=== PATIENT | male | born 1950 | race Caucasian/White ===

== ENCOUNTER 2020-05-25 13:32 | Outpatient (CLI) | payer MEDICARE, SELFPAY ==
--- NOTE | ~2020-05-25 | MR_ITS ---
EXAMINATION: MR knee LT wo con DATE: 05/25/2020 14:37 INDICATION: Left knee pain. TECHNIQUE: Magnetic resonance imaging (MRI) of the left knee was performed without intravenous contra st. Sequences included axial PD-weighted FS FSE, coronal PD-weighted FSE and PD-weighted FS FSE, sagi ttal PD-weighted FSE, and sagittal T2-weighted FS FSE. COMPARISON: None. FINDINGS: Medial compartment: There is a complex tear involving body and posterior horn of medial meniscus. There is deep partial t hickness cartilage loss involving tibial central and medial articular surface with mild subchondral e mary-like marrow signal intensity. There is full-thickness and deep partial thickness cartilage loss of femoral condyle involving the medial, central, and posterior articular surface. Marginal osteophyt es are noted. Lateral compartment: Lateral meniscus is normal. There is deep partial thickness cartilage loss of femoral condyle involvi ng the central articular surface. There is extensive shallow partial-thickness cartilage loss of tibi al condyle and femoral condyle. Marginal osteophytes are noted. Patellofemoral compartment: There is shallow partial-thickness cartilage loss of patella. There is deep partial thickness cartila ge loss of central trochlea and shallow partial-thickness cartilage loss of medial trochlea. Ligaments and tendons: Anterior and posterior cruciate ligaments are normal. There are changes of prior sprain of medial col lateral ligament characterized by thickening and increased signal intensity proximally. The lateral c ollateral ligament complex is normal. There is mild patellar tendinopathy. Fluid: There is a small knee joint effusion. There is a moderate-sized Bautista's cyst. IMPRESSION: 1. Severe chondrosis of medial compartment and moderate chondrosis of lateral and patellofemoral comp artments. 2. Tear of medial meniscus. 3. Small knee joint effusion. 4. Moderate-sized Bautista's cyst. Reviewed, dictated and finalized at location A. IMPRESSION: 1. Severe chondrosis of medial compartment and moderate chondrosis of lateral a nd patellofemoral compartments. 2. Tear of medial meniscus. 3. Small knee joint effusion. 4. Moderate-sized Bautista's cyst.
== END 2020-05-25 13:33 | disposition home or self-care (01) ==
LOC: ANHIMG 13:42
PROVIDERS: PCP Family Medicine; Visit Provider Nurse Practitioner
DX: M25.462 Effusion, left knee (principal); M71.22 Synovial cyst of popliteal space [Baker], left knee; S83.242A Other tear of medial meniscus, current injury, left knee, initial encounter; X58.XXXA Exposure to other specified factors, initial encounter
CPT/HCPCS: 73721

== ENCOUNTER 2020-07-02 09:14 | Outpatient (CLI) | payer MEDICARE, SELFPAY ==
--- NOTE | ~2020-07-02 | XR_ITS ---
XR knee LT min 4V 07/02/2020 09:47 Indication: Left knee pain Procedure: 5 views left knee Comparison: 06/14/2006 Findings: There is tricompartment osteoarthritis. The left knee, severe in the medial compartment. Tr serafin knee effusion. No fracture or traumatic malalignment. Irregular sclerosis of the distal femoral d iaphysis, likely enchondroma or bone infarction. There is chondrocalcinosis. Impression: 1: Severe osteoarthritis of the left knee, most advanced in the medial compartment. Reviewed, dictated and finalized at location A. CTIVE LIEUTENANT Impression: 1: Severe osteoarthritis of the left knee, most advanced in the medial compartm ent.
== END 2020-07-02 09:15 | disposition home or self-care (01) ==
LOC: CHSIMG 09:18
PROVIDERS: PCP Family Medicine; Visit Provider Orthopaedic Surgery
DX: M25.562 Pain in left knee (principal); M17.12 Unilateral primary osteoarthritis, left knee
CPT/HCPCS: 73564

== ENCOUNTER → 2021-01-06 01:59 | Outpatient (CLI) | payer MEDICARE, SELFPAY ==
[2021-01-06 17:04] LABS: SARS-CoV-2 RNA PCR Negative
== END ==
PROVIDERS: PCP Family Medicine; Visit Provider Internal Medicine Gastroenterology
DX: Z01.812 Encounter for preprocedural laboratory examination (principal); Z20.822 Contact with and (suspected) exposure to COVID-19
CPT/HCPCS: C9803; U0003; U0005

== ENCOUNTER 2021-01-09 00:44 | Day surgery (SDC) | payer MEDICARE, SELFPAY ==
[2020-12-30 13:58] VITALS: BMI 35.9
[2021-01-09 07:09] VITALS: BP 146/90; PULSE 83; RESP 18; TEMP 36.6; O2SAT 96; BMI 35.6
--- NOTE | 2021-01-09 07:20 | WPDGICN ---
GI Consult Note Consult date/time: 01/09/21 07:20 Reason for visit is colonoscopy. This very pleasant gentleman seen in consultation request of the primary physician. Impression: Screening colonoscopy. HTN. HLD. Obesity. CAD status post CABG X2 in x1. History: This very pleasant gentleman has a negative GI review systems. He is here for screening colonoscopy. Physical examination: General: very pleasant patient in no acute distress. HEENT: Head was normocephalic sclerae is clear mouth without masses neck was supple. Heart: Rate rhythm regular without S3 or S4. Lungs: CTA. Abdomen: Soft with no guarding or rigidity. Bowel sounds were active. Neurologic: Cranial nerves 2 through 12 intact. No focal defects. No clonus. Musculoskeletal system: Revealed no joint tenderness or swelling no muscle atrophy. Extremities: Reveal no significant edema. Skin: Warm and dry with normal turgor. Mental status: intact. Patient is alert and oriented. Review of Systems Review of Systems: All systems reviewed & are unremarkable except as noted in HPI and below PMFSH Past Medical History Medical History (Updated 10/22/20 @ 16:26 by Wendy Niño CMA) CAD (coronary artery disease) Eczema of lower leg Essential (primary) hypertension Gastritis Hypertension Prediabetes Surgical History Surgical History History of cholecystectomy 06/2010 Hx of coronary artery bypass graft 05/2009 and 1985 Family History Family History (Updated 07/02/20 @ 15:36 by Sheyla Rocha, RT(R)) Father Heart disease Father Family history of cardiovascular disease Other Cerebrovascular accident Hypertension Social History Social History (Updated 07/02/20 @ 15:37 by Sheyla Rocha, RT(R)) Smoking packs per day: 1 Smoking cigarettes per day: 20.0 Years smoked: 3 Smoking pack-years: 3.00 Smoking status: Former smoker Tobacco type: cigarettes Second hand tobacco smoke exposure: No Smoking end date: 08/09/74 Alcohol intake: current Drinks per week: 1 Substance use: never Substance use type: does not use Living arrangements: with family Gender identity (if verbalized by the patient): Male Spiritual care concerns: No Meds Home Medications and Allergies Home Medications Medication Instructions Recorded Confirmed Type aspirin 325 mg tablet 325 mg PO DAILY 06/29/19 12/30/20 History atorvastatin 20 mg tablet 20 mg PO DAILY 06/29/19 12/30/20 History hydrochlorothiazide 12.5 mg capsule 12.5 mg PO DAILY 06/29/19 12/30/20 History metoprolol succinate 50 mg 50 mg PO DAILY 06/29/19 12/30/20 History tablet,extended release 24 hr fosinopril 20 mg tablet 20 mg PO DAILY 07/12/19 12/30/20 History Allergies Allergy/AdvReac Type Severity Reaction Status Date / Time prednisolone Allergy Unknown Agitated Verified 01/09/21 07:09 Vital Signs Vital Signs - 24 hr 01/09/21 07:09 Temperature 36.6 C Pulse Rate 83 Respiratory Rate 18 Blood Pressure 146/90 H Pulse Oximetry 96
[2021-01-09] MEDS: LACTATED RINGERS 1,000 ML 150 ML IV CONT (07:30)
--- NOTE | 2021-01-09 08:16 | WPDANESEPPF ---
Anes - Initial Pre Proc Eval Procedure: Operation Date: 01/09/21 08:30 Proposed Procedures p Colonoscopy - Horacio Aguayo DO Date/Time: 01/09/21 08:16 Surgeon: Horacio Aguayo DO Pre Op Diagnosis: neoplasm screening Patient Data Age: 70 Gender: M Height: 5 ft 8 in Weight: 106.3 kg Last Vital Signs Temp 97.9 F 01/09/21 07:09 Pulse 83 01/09/21 07:09 Resp 18 01/09/21 07:09 BP 146/90 H 01/09/21 07:09 Pulse Ox 96 01/09/21 07:09 Allergies Allergy/AdvReac Type Severity Reaction Status Date / Time prednisolone Allergy Unknown Agitated Verified 01/09/21 07:09 Home Medications Medication Instructions Recorded Confirmed Type aspirin 325 mg tablet 325 mg PO DAILY 06/29/19 12/30/20 History atorvastatin 20 mg tablet 20 mg PO DAILY 06/29/19 12/30/20 History hydrochlorothiazide 12.5 mg capsule 12.5 mg PO DAILY 06/29/19 12/30/20 History metoprolol succinate 50 mg 50 mg PO DAILY 06/29/19 01/09/21 History tablet,extended release 24 hr fosinopril 20 mg tablet 20 mg PO DAILY 07/12/19 12/30/20 History Patient hx anesthesia problems: none Family hx anesthesia problems: none PMFSH Past Medical History Medical History (Updated 10/22/20 @ 16:26 by Wendy Niño CMA) CAD (coronary artery disease) Eczema of lower leg Essential (primary) hypertension Gastritis Hypertension Prediabetes Surgical History Surgical History History of cholecystectomy 06/2010 Hx of coronary artery bypass graft 05/2009 and 1985 Family History Family History (Updated 07/02/20 @ 15:36 by Sheyla Rocha RT(R)) Father Heart disease Father Family history of cardiovascular disease Other Cerebrovascular accident Hypertension Social History Social History (Updated 07/02/20 @ 15:37 by Sheyla Rocha RT(R)) Smoking packs per day: 1 Smoking cigarettes per day: 20.0 Years smoked: 3 Smoking pack-years: 3.00 Smoking status: Former smoker Tobacco type: cigarettes Second hand tobacco smoke exposure: No Smoking end date: 08/09/74 Alcohol intake: current Drinks per week: 1 Substance use: never Substance use type: does not use Living arrangements: with family Gender identity (if verbalized by the patient): Male Spiritual care concerns: No Anes - Eval Final PreProcedure Day of Procedure 01/09/21 08:16 Patient weight: obese Heart: regular rate and rhythm and murmur Lungs: clear to auscultation Airway: Mallampati scale Neurological: alert and oriented Last oral intake: >/= 8 hours ASA classification: III Emergent: no Anesthetic plan: proceed Anesthesia type and monitoring: general GIVS and standard monitoring Informed Consent: The patient's anesthetic plan and its attendant risks and benefits were discussed with the patient/family/POA. Questions were solicited and answers provided to the satisfaction of the patient/family/POA.
[2021-01-09 08:55] VITALS: BP 90/50; PULSE 66; RESP 19; O2SAT 96
[2021-01-09 09:05] VITALS: BP 98/50; PULSE 65; RESP 20; O2SAT 95
[2021-01-09 09:15] VITALS: BP 96/48; PULSE 63; RESP 18; O2SAT 96
== END 2021-01-09 09:21 | disposition home or self-care (01) ==
PROVIDERS: PCP Family Medicine; Visit Provider Internal Medicine Gastroenterology
PROC: 0DJD8ZZ Inspection of Lower Intestinal Tract, Via Natural or Artificial Opening Endoscopic (ICD-10-PCS; CPT 45378; principal; 2021-01-09 08:30)
DX: Z12.11 Encounter for screening for malignant neoplasm of colon (principal); K62.1 Rectal polyp; K63.5 Polyp of colon; I10 Essential (primary) hypertension; E78.5 Hyperlipidemia, unspecified; I25.10 Atherosclerotic heart disease of native coronary artery without angina pectoris; R73.03 Prediabetes; Z95.1 Presence of aortocoronary bypass graft; E66.9 Obesity, unspecified; Z68.35 Body mass index [BMI] 35.0-35.9, adult; Z87.891 Personal history of nicotine dependence; Z79.82 Long term (current) use of aspirin
CPT/HCPCS: 45380; 88305; C9803; J2704; J7120; U0003; U0005

== ENCOUNTER 2021-03-11 08:06 | Outpatient (CLI) | payer MEDICARE, SELFPAY ==
--- NOTE | ~2021-03-11 | XR_ITS ---
XR knee LT min 4V DATE: 03/11/2021 08:33 INDICATION: Chronic left knee pain TECHNIQUE: [place] and weightbearing AP, PA and lateral views COMPARISON: 06/28/2020 left knee FINDINGS: No fracture or dislocation or joint effusion, periosteal reaction or bone destruction. There is tricompartment osteoarthritis, most prominent at the medial compartment. Mild chondrocalcino sis. Sclerotic opacities in the distal femoral shaft are consistent with old infarct or less likely enchon droma. Surgical clips are noted within the soft tissues of the distal upper leg and proximal lower leg. IMPRESSION: Tricompartment osteoarthritis Reviewed, dictated and finalized at location B.
== END 2021-03-11 08:07 | disposition home or self-care (01) ==
PROVIDERS: PCP Family Medicine; Visit Provider Orthopaedic Surgery
DX: M25.562 Pain in left knee (principal)
CPT/HCPCS: 73564

== ENCOUNTER 2021-03-18 07:58 | Outpatient (CLI) | payer MEDICARE, SELFPAY ==
[2021-03-18 08:35] LABS: Basophils Absolute Auto 0.1 K/mm3 (0.0-0.1); Basophils Percent Auto 0.8 % (0.2-1.2); Eosinophils Absolute Auto 0.3 K/mm3 (0-0.3); Eosinophils Percent Auto 4.5 % (0-4.4); Hematocrit 45.1 % (42.0-52.0); Immature Granulocyte Absolute 0.02 K/mm3 (0.00-0.031); Immature Granulocyte Percent A 0.3 % (0-0.5); Lymphocytes Absolute Auto 1.39 K/mm3 (0.9-3.2); Lymphocytes Percent Auto 23.2 % (18.3-44.2); Mean Corpuscular HGB Conc 33.3 g/dl (32-36); Mean Corpuscular Hemoglobin 30.4 pg (26-34); Mean Corpuscular Volume 91.5 fl (80-100); Mean Platelet Volume 10.8 fl (7.4-10.4); Monocytes Absolute Auto 0.8 K/mm3 (0.1-0.6); Neutrophils Absolute Auto 3.4 K/mm3 (1.3-6.7); Neutrophils Percent Auto 57.2 % (45.5-73.1); Platelet Count Result 171 k/mm3 (150-375); Red Blood Count 4.93 M/mm3 (4.6-6.20)
--- NOTE | 2021-03-18 08:46 | ECG_ITS ---
Measurements Intervals [place] Rate: 68 P: 43 [place]: 161 QRS: 30 QRSD: 106 T: 86 QT: 414 QTc: 440 Interpretive Statements SINUS RHYTHM INCOMPLETE RIGHT BUNDLE BRANCH BLOCK CONSIDER INFERIOR INFARCT, AGE INDETERMINATE BORDERLINE T WAVE ABNORMALITY- ANTERIOR LEADS BASELINE ARTIFACT- V3 ABNORMAL ECG Electronically Signed On 03-18-2021 10:14:45 CDT by Jass Coon D.O.
[2021-03-18 08:57] LABS: Alanine Aminotransferase 45 U/L (4-50); Albumin Level 4.2 g/dL (3.5-5.1); Alkaline Phosphatase 92 U/L (38-126); Anion Gap 5 mmol/L (8-16); Aspartate Amino Transferase 44 U/L (17-59); Bilirubin,Total 0.9 mg/dL (0.2-1.3); Blood Urea Nitrogen 9 mg/dL (9-20); Calcium 9.4 mg/dL (8.4-10.2); Carbon Dioxide 31 mmol/L (22-30); Chloride 103 mmol/L (98-107); Estimated Glomerular Filt Rate > 60; Glucose 116 mg/dL (65-110); Potassium 4.3 mmol/L (3.4-5.0); Sodium 139 mmol/L (137-145)
[2021-03-18 09:34] LABS: Hemoglobin A1C 5.9 % (<5.7)
== END 2021-03-18 07:59 | disposition home or self-care (01) ==
LOC: ANHLAB 08:02
PROVIDERS: PCP Family Medicine; Visit Provider Family Medicine
DX: R73.03 Prediabetes (principal); E78.5 Hyperlipidemia, unspecified; I10 Essential (primary) hypertension; Z01.818 Encounter for other preprocedural examination; I45.10 Unspecified right bundle-branch block
CPT/HCPCS: 36415; 80053; 83036; 85025; 93005

== ENCOUNTER 2021-03-28 04:32 | Day surgery (SDC) | payer MEDICARE, SELFPAY ==
[2021-03-17 16:11] VITALS: BMI 36.5
[2021-03-28] VITALS (7 sets, daily range): BP systolic 127–145; BP diastolic 67–95; PULSE 68–85; RESP 11–16; TEMP 36.4–36.7; O2SAT 93–100
--- NOTE | 2021-03-28 07:29 | WPDHPUPDATE1 ---
History and Physical Update Update Date/Time: 03/28/21 07:29 History and Physical has been reviewed, including an updated exam of the patient. There are NO changes in the patient's condition. Risks, benefits, and alternatives have been discussed and questions answered. Patient agrees to proceed with procedure.
[2021-03-28] MEDS: LACTATED RINGERS 1,000 ML 30 ML IV CONT ×2 (07:50→09:57)
[2021-03-28] MEDS: CELECOXIB 200 MG CAPSULE PO (07:54)
[2021-03-28] MEDS: ACETAMINOPHEN 500 MG TABLET 1000 MG PO (07:54)
--- NOTE | 2021-03-28 08:16 | WPDANESEPPF ---
Anes - Initial Pre Proc Eval Procedure: Operation Date: 03/28/21 09:00 Proposed Procedures p Left Knee Arthroscopy, Proceed As Indicated - Chuy Sanchez MD Date/Time: 03/28/21 08:16 Surgeon: Chuy Sanchez MD Pre Op Diagnosis: Left knee medial meniscus tear Patient Data Age: 70 Gender: M Height: 1.73 m Weight: 109 kg Allergies Allergy/AdvReac Type Severity Reaction Status Date / Time prednisolone AdvReac Unknown Agitated Verified 03/17/21 16:01 Home Medications Medication Instructions Recorded Confirmed Type aspirin 325 mg tablet 325 mg PO DAILY 06/29/19 03/17/21 History hydrochlorothiazide 12.5 mg capsule 12.5 mg PO QAM 06/29/19 03/17/21 History metoprolol succinate 50 mg 50 mg PO QAM 06/29/19 03/17/21 History tablet,extended release 24 hr fosinopril 20 mg tablet 20 mg PO QAM 07/12/19 03/17/21 History atorvastatin 20 mg tablet 20 mg PO QHS tablet 03/17/21 03/17/21 History Patient hx anesthesia problems: none Family hx anesthesia problems: none PMFSH Past Medical History Medical History (Updated 03/28/21 @ 08:16 by Germán Shepard MD) CAD (coronary artery disease) Eczema of lower leg Essential (primary) hypertension Gastritis Obesity Prediabetes Surgical History Surgical History History of cholecystectomy 06/2010 Hx of coronary artery bypass graft 05/2009 and 1985 Family History Family History Father Heart disease Father Family history of cardiovascular disease Other Cerebrovascular accident Hypertension Social History Social History Smoking packs per day: 1 Smoking cigarettes per day: 20.0 Years smoked: 5 Smoking pack-years: 5.00 Smoking status: Former smoker Tobacco type: cigarettes Second hand tobacco smoke exposure: No Smoking end date: 02/06/79 Alcohol intake: current Drinks per week: 3 Alcohol use details: 2 beers consumed weekly Substance use: never Substance use type: does not use Living arrangements: with family Additional living arrangements comments: Gender identity (if verbalized by the patient): Male Spiritual care concerns: No Anes - Eval Final PreProcedure Day of Procedure 03/28/21 08:16 Patient weight: obese Heart: regular rate and rhythm Lungs: clear to auscultation Airway: Mallampati scale class III Neurological: alert and oriented Last oral intake: >/= 8 hours ASA classification: III Emergent: no Anesthetic plan: proceed Anesthesia type and monitoring: general LMA and standard monitoring Informed Consent: The patient's anesthetic plan and its attendant risks and benefits were discussed with the patient/family/POA. Questions were solicited and answers provided to the satisfaction of the patient/family/POA.
[2021-03-28] MEDS: ceFAZolin 2 GM/D5W 50 ML 2 GM/50 ML BAG IVPB (08:43)
[2021-03-28] MEDS: BUPIVACAINE HCL 0.5% PF 30 ML VIAL INFILTRATE (09:17)
--- NOTE | 2021-03-28 10:17 | W.PM.PROC2 ---
Procedure Note - Detailed Date of Procedure 03/28/21 Pre-op Diagnosis Left knee medial meniscus tear, lateral meniscus tear Post-op Diagnosis same Procedure Performed LEFT KNEE SCOPE Surgeon Chuy Sanchez MD Anesthesia general Description of Procedure PATIENT WAS TAKEN TO THE OR. LEFT LEG WAS PREPPED AND DRAPED STERILE. TROCARS WERE PLACED IN THE USUAL FASHION. CAMERA WAS INTRODUCED. THERE WAS CHONDROMALACIA TO THE PATELLA FEMORAL JOINT. THERE WAS A LOT OF SYNOVITIS IN ALL COMPARTMENTS. THE MEDIAL COMPARTMENT SHOWED CHONDROMALACIA TO THE MEDIAL FEMORAL CONDYLE. A SHAVER WAS USED TO PREFORM A CHONDROPLASTY. THERE WAS A COMPLEX MEDIAL MENISCUS TEAR. THERE WAS A PREVIOUS RESECTED TEAR THAT WAS NOTED. THERE WAS A FULL THICKNESS CARTILAGE DEFECT AT THE POSTERIOR PLATEAU. THE TEAR WAS RESECTED WITH A BITER AND A SHAVER DOWN TO A SMOOTH BASE. ABOUT 20% OF THE MENISCUS WAS REMOVED. THE ACL WAS INTACT. THE LATERAL MENISCUS WAS TORN AT THE MIDDLE OF THE MAIN BODY. THERE WAS A CHONDRAL DEFECT THAT HAD GRADE 2 CHONDROMALACIA. THIS UNDERWENT CHONDROPLASTY. A SYNOVECTOMY WAS PREFORMED WELL. THE PATELLO FEMORAL JOINT UNDERWENT CHONDROPLASTY. THERE WAS GRADE 3 CHONDROMALACIA IN PART OF THE TROCHLEA AND PART OF THE PATELLA. SYNOVECTOMY WAS PREFORMED IN THE SUPERIOR MEDIAL COMPARTMENT. THE WOUNDS WERE APPROXIMATED WITH 4.0 NYLON. STERILE DRESSING WAS APPLIED. PATIENT WAS EXTUBATED. Estimated Blood Loss -5.0 Complications No immediate complications Condition stable Disposition PACU
== END 2021-03-28 11:48 | disposition home or self-care (01) ==
PROVIDERS: PCP Family Medicine; Visit Provider Orthopaedic Surgery
PROC: (CPT 29870; principal; 2021-03-28 09:00)
DX: M23.329 Other meniscus derangements, posterior horn of medial meniscus, unspecified knee (principal); M23.262 Derangement of other lateral meniscus due to old tear or injury, left knee; M65.862 Other synovitis and tenosynovitis, left lower leg; M22.42 Chondromalacia patellae, left knee; M23.8X2 Other internal derangements of left knee; I10 Essential (primary) hypertension; I25.10 Atherosclerotic heart disease of native coronary artery without angina pectoris; Z95.1 Presence of aortocoronary bypass graft; E66.9 Obesity, unspecified; Z68.35 Body mass index [BMI] 35.0-35.9, adult; Z87.891 Personal history of nicotine dependence; Z79.82 Long term (current) use of aspirin; Z79.899 Other long term (current) drug therapy
CPT/HCPCS: 29880; 36415; 80053; 83036; 85025; 93005; 97116; A9270; J0690; J1100; J2250; J2405; J2704; J3010; J7120

== ENCOUNTER 2021-04-11 07:56 | Outpatient (RCR) | payer MEDICARE, SELFPAY ==
--- NOTE | 2021-04-11 08:02 | PTOPEVAL ---
Thank you for referring Lauro Stratton to [facility] [place].? The patient is scheduled to be seen for therapy? ____x/week for ___ weeks. Please review, sign, date and return this plan of care CATHERINE. I agree with and certify that the following plan of care is medically necessary. Referring Physician Date Admitting Provider: Attending Provider: Chuy Sanchez MD Referring Provider: *PT Outpatient Evaluation Start: 04/11/21 07:00 Freq: Status: Active Protocol: Document 04/11/21 07:01 ACR (Rec: 04/11/21 08:02 ACR [id number]) Therapy Assessment Status Assessment Status Assessment Status Evaluation Outpatient Past Medical History Neurological History Hx Neurological Disorders No Significant History Cardiovascular History Hx Cardiac Catheterization Yes Hx Congestive Heart Failure Yes Hx Coronary Artery Bypass Graft Yes: 1986 two vessel, 2008 one vessel Hx Coronary Artery Disease Yes Hx Hypercholesterolemia Yes Hx Hypertension Yes Hx Myocardial Infarction Yes: 1986 AND 2008 Hx Other Cardiac Disorders Yes: DR RUBIO ANNUALLY Respiratory History Hx Respiratory Disorders No Significant History Gastrointestinal History Hx Cholecystectomy Yes: 2009 Genitourinary History Hx Urinary Tract Infection Yes Musculoskeletal History Hx Other Musculoskeletal Disorders Yes: LT KNEE MEDIAL MENISCUS TEAR Hematological History Hx Hematological Disorders No Significant History Endocrine History Hx Endocrine Disorders No Significant History HEENT History Hx HEENT Disorders No Significant History Integumentary History Hx Psoriasis Yes Hx Shingles Yes: YEARS AGO Reproductive History Hx Reproductive Disorders No Significant History Psychosocial History Hx Psychiatric Disorders No Significant History Pain History History of Any Previous or Ongoing No Significant History Instance of Pain Anesthesia History Hx Anesthesia Reactions No Significant History Evaluation Information Problem Diagnosis L knee arthroscopy Onset 03/28/21 Subjective Information Patient states that last year Query Text:As Reported By Patient/ his knee really started Family bothering him. He waited for a bit then got a scope on his knee. He went back to the doctor yesterday and got it drained and then a cortizone shot which made it feel a lot better. He states he has difficulty with steps,
--- NOTE | 2021-05-20 10:45 | PTOPEVAL ---
Thank you for referring Lauro Stratton to [facility].? The patient is scheduled to be seen for therapy? ____x/week for ___ weeks. Please review, sign, date and return this plan of care CATHERINE. I agree with and certify that the following plan of care is medically necessary. Referring Physician Date Admitting Provider: Attending Provider: Chuy Sanchez MD Referring Provider: *PT Outpatient Evaluation Start: 04/11/21 07:00 Freq: Status: Active Protocol: Document 05/20/21 07:12 ACR (Rec: 05/20/21 07:58 ACR [id number]) Therapy Assessment Status Assessment Status Assessment Status Progress Outpatient Past Medical History Neurological History Hx Neurological Disorders No Significant History Cardiovascular History Hx Cardiac Catheterization Yes Hx Congestive Heart Failure Yes Hx Coronary Artery Bypass Graft Yes: 1986 two vessel, 2008 one vessel Hx Coronary Artery Disease Yes Hx Hypercholesterolemia Yes Hx Hypertension Yes Hx Myocardial Infarction Yes: 1986 AND 2008 Hx Other Cardiac Disorders Yes: DR RUIBO ANNUALLY Respiratory History Hx Respiratory Disorders No Significant History Gastrointestinal History Hx Cholecystectomy Yes: 2009 Genitourinary History Hx Urinary Tract Infection Yes Musculoskeletal History Hx Other Musculoskeletal Disorders Yes: LT KNEE MEDIAL MENISCUS TEAR Hematological History Hx Hematological Disorders No Significant History Endocrine History Hx Endocrine Disorders No Significant History HEENT History Hx HEENT Disorders No Significant History Integumentary History Hx Psoriasis Yes Hx Shingles Yes: YEARS AGO Reproductive History Hx Reproductive Disorders No Significant History Psychosocial History Hx Psychiatric Disorders No Significant History Pain History History of Any Previous or Ongoing No Significant History Instance of Pain Anesthesia History Hx Anesthesia Reactions No Significant History Evaluation Information Problem Diagnosis L knee arthroscopy Onset 03/28/21 Subjective Information Patient reports that he Query Text:As Reported By Patient/ continues to have pain Family especially in the morning. He has difficulty with stairs and can't go up or down the correct way, rather he has to go sideways. He states that he still feels pretty weak. He feels like the back of his knee is really tight and he is
--- NOTE | 2021-06-16 07:56 | PTOPEVAL ---
Thank you for referring Lauro Stratton to [facility].? The patient is scheduled to be seen for therapy? ____x/week for ___ weeks. Please review, sign, date and return this plan of care CATHERINE. I agree with and certify that the following plan of care is medically necessary. Referring Physician Date Admitting Provider: Attending Provider: Chuy Sanchez MD Referring Provider: *PT Outpatient Evaluation Start: 04/11/21 07:00 Freq: Status: Active Protocol: Document 06/16/21 06:55 ACR (Rec: 06/16/21 07:55 ACR [id number]) Therapy Assessment Status Assessment Status Assessment Status Discharge Outpatient Past Medical History Neurological History Hx Neurological Disorders No Significant History Cardiovascular History Hx Cardiac Catheterization Yes Hx Congestive Heart Failure Yes Hx Coronary Artery Bypass Graft Yes: 1986 two vessel, 2008 one vessel Hx Coronary Artery Disease Yes Hx Hypercholesterolemia Yes Hx Hypertension Yes Hx Myocardial Infarction Yes: 1986 AND 2008 Hx Other Cardiac Disorders Yes: DR RUBIO ANNUALLY Respiratory History Hx Respiratory Disorders No Significant History Gastrointestinal History Hx Cholecystectomy Yes: 2009 Genitourinary History Hx Urinary Tract Infection Yes Musculoskeletal History Hx Other Musculoskeletal Disorders Yes: LT KNEE MEDIAL MENISCUS TEAR Hematological History Hx Hematological Disorders No Significant History Endocrine History Hx Endocrine Disorders No Significant History HEENT History Hx HEENT Disorders No Significant History Integumentary History Hx Psoriasis Yes Hx Shingles Yes: YEARS AGO Reproductive History Hx Reproductive Disorders No Significant History Psychosocial History Hx Psychiatric Disorders No Significant History Pain History History of Any Previous or Ongoing No Significant History Instance of Pain Anesthesia History Hx Anesthesia Reactions No Significant History Evaluation Information Problem Diagnosis L knee arthoscopy Onset 03/28/21 Subjective Information Patient reports that since Query Text:As Reported By Patient/ beginning therapy he is Family feeling good, but he continues to have pain throughout the day. His pain is worse in the morning. He also states that uneven terrain and steps are still a little difficult for him. He states that walking is a lot better, but when he
== END 2021-06-16 09:24 | disposition home or self-care (01) ==
LOC: CHSPT 07:56
PROVIDERS: Visit Provider Orthopaedic Surgery
DX: Z98.890 Other specified postprocedural states (principal)
CPT/HCPCS: 97014; 97110; 97140; 97161; 97530; G0283

== ENCOUNTER 2022-06-29 11:25 | Outpatient (CLI) | payer MEDICARE, SELFPAY ==
[2022-06-29 18:49] LABS: Basophils Absolute Auto 0.1 K/mm3 (0.0-0.1); Basophils Percent Auto 0.9 % (0.2-1.2); Eosinophils Absolute Auto 0.3 K/mm3 (0-0.3); Eosinophils Percent Auto 4.5 % (0-4.4); Hematocrit 44.3 % (42.0-52.0); Hemoglobin 15.1 g/dL (14.0-18.0); Immature Granulocyte Absolute 0.04 K/mm3 (0.00-0.031); Immature Granulocyte Percent A 0.6 % (0-0.5); Lymphocytes Absolute Auto 1.37 K/mm3 (0.9-3.2); Lymphocytes Percent Auto 19.7 % (18.3-44.2); Mean Corpuscular HGB Conc 34.1 g/dl (32-36); Mean Corpuscular Hemoglobin 30.3 pg (26-34); Mean Corpuscular Volume 88.8 fl (80-100); Mean Platelet Volume 11.8 fl (7.4-10.4); Monocytes Absolute Auto 0.9 K/mm3 (0.1-0.6); Neutrophils Absolute Auto 4.3 K/mm3 (1.3-6.7); Neutrophils Percent Auto 61.3 % (45.5-73.1); Platelet Count Result 218 k/mm3 (150-375); Red Blood Count 4.99 M/mm3 (4.6-6.20); Red Cell Distribution Width 12.6 % (11.5-14.5); White Blood Count 6.9 K/mm3 (4.5-10.0)
[2022-06-29 18:53] LABS: Hemoglobin A1C 6.2 % (<5.7)
[2022-06-29 18:58] LABS: Alanine Aminotransferase 39 U/L (6-50); Albumin Level 4.3 g/dL (3.5-5.1); Alkaline Phosphatase 75 U/L (38-126); Anion Gap 8 mmol/L (8-16); Aspartate Amino Transferase 50 U/L (17-59); Bilirubin,Total 0.8 mg/dL (0.2-1.3); Blood Urea Nitrogen 14 mg/dL (9-20); Calcium 9.3 mg/dL (8.4-10.2); Carbon Dioxide 31 mmol/L (22-30); Chloride 100 mmol/L (98-107); Cholesterol 157 mg/dL (0-200); Estimated Glomerular Filt Rate > 60; Glucose 117 mg/dL (65-110); HDL Direct 27 mg/dL; Potassium 4.9 mmol/L (3.4-5.0); Sodium 139 mmol/L (137-145); Triglycerides 167 mg/dL (<150)
[2022-06-29 19:09] LABS: LDL Cholesterol Direct 95 mg/dL
[2022-06-29 19:19] LABS: Vitamin D 25 Hydroxy 58.4 ng/mL
[2022-06-29 19:30] LABS: Prostate Specific Antigen 0.9 ng/mL (< OR = 4.0)
== END 2022-06-29 11:26 | disposition home or self-care (01) ==
LOC: ANHGOSHLAB 11:30
PROVIDERS: PCP Family Medicine; Visit Provider Family Medicine
DX: I10 Essential (primary) hypertension (principal); Z79.899 Other long term (current) drug therapy; R73.03 Prediabetes; Z12.5 Encounter for screening for malignant neoplasm of prostate; E78.5 Hyperlipidemia, unspecified; E55.9 Vitamin D deficiency, unspecified; E53.8 Deficiency of other specified B group vitamins
CPT/HCPCS: 36415; 80053; 80061; 82306; 82607; 83036; 84153; 84443; 85025; G0103

== ENCOUNTER 2022-12-20 06:14 | Emergency (ER) | payer MEDICARE, SELFPAY ==
[2022-12-20] VITALS (8 sets, daily range): BP systolic 120–134; BP diastolic 68–83; PULSE 63–77; RESP 14–20; TEMP 36.7; O2SAT 94–98
--- NOTE | ~2022-12-20 | CT_ITS ---
EXAMINATION: CT abdomen pelvis w con DATE: 12/20/2022 07:55 INDICATION: Left lower quadrant pain TECHNIQUE: Computed tomography (CT) of the abdomen and pelvis was performed with 100 cc Omnipaque 350 intravenous contrast. The dose-length product was 1306.88 mGy-cm. Automated exposure control and ite rative reconstruction technique were employed. COMPARISON: None. FINDINGS: There is dependent atelectasis in the lung bases. Heart size normal. No significant pleural or pericardial effusion. Mild atherosclerosis without aneurysm. No lymphadenopathy. Retroaortic left renal vein. There is an accessory splenule. No free air or free fluid. Status post cholecystectomy. The liver, spleen, pancreas, adrenal glands and kidneys are unremarkable . There is lumbar spondylosis with partial fusion at L4-5. There are small lytic defects in multiple vertebral bodies, suspicious for metastatic disease or myeloma. Mild osteoarthritis of the hips. IMPRESSION: 1. No acute abdominal abnormality. 2: Small subtle lytic lesions of multiple vertebral bodies, suspicious for metastatic disease or mye matthew. Correlate for history of malignancy. Reviewed, dictated and finalized at location A. IMPRESSION: 1. No acute abdominal abnormality. 2: Small subtle lytic lesions of multiple vertebral bodies, suspicious for met astatic disease or myeloma. Correlate for history of malignancy.
--- NOTE | 2022-12-20 06:32 | ECG_ITS ---
Measurements Intervals [place] Rate: 73 P: 29 [place]: 185 QRS: 9 QRSD: 101 T: 52 QT: 413 QTc: 457 Interpretive Statements SINUS RHYTHM VENTRICULAR PREMATURE COMPLEXES INCOMPLETE RIGHT BUNDLE BRANCH BLOCK DELAYED PRECORDIAL R/S TRANSITION CONSIDER INFERIOR INFARCT, AGE INDETERMINATE BORDERLINE ST-T WAVE ABNORMALITY- HIGH LATERAL LEADS ABNORMAL ECG COMPARED TO ECG 03/18/2021 08:58:24 NO SIGNIFICANT CHANGES Electronically Signed On 12-20-2022 8:06:17 CDT by Jass Coon D.O.
[2022-12-20 07:06] LABS: Basophils Percent Auto 0.7 % (0.2-1.2); Eosinophils Absolute Auto 0.4 K/mm3 (0-0.3); Eosinophils Percent Auto 6.7 % (0-4.4); Hematocrit 42.4 % (42.0-52.0); Hemoglobin 14.3 g/dL (14.0-18.0); Immature Granulocyte Absolute 0.02 K/mm3 (0.00-0.031); Immature Granulocyte Percent A 0.4 % (0-0.5); Lymphocytes Absolute Auto 1.28 K/mm3 (0.9-3.2); Lymphocytes Percent Auto 22.7 % (18.3-44.2); Mean Corpuscular HGB Conc 33.7 g/dl (32-36); Mean Corpuscular Hemoglobin 30.2 pg (26-34); Mean Corpuscular Volume 89.5 fl (80-100); Mean Platelet Volume 11.1 fl (7.4-10.4); Monocytes Absolute Auto 0.9 K/mm3 (0.1-0.6); Monocytes Percent Auto 15.1 % (2.6-8.5); Neutrophils Absolute Auto 3.1 K/mm3 (1.3-6.7); Neutrophils Percent Auto 54.4 % (45.5-73.1); Platelet Count Result 172 k/mm3 (150-375); Red Blood Count 4.74 M/mm3 (4.6-6.20); Red Cell Distribution Width 12.9 % (11.5-14.5); White Blood Count 5.6 K/mm3 (4.5-10.0)
[2022-12-20 07:15] LABS: Alanine Aminotransferase 34 U/L (6-50); Alkaline Phosphatase 152 U/L (38-126); Anion Gap 7 mmol/L (8-16); Aspartate Amino Transferase 32 U/L (17-59); Bilirubin,Total 0.6 mg/dL (0.2-1.3); Blood Urea Nitrogen 16 mg/dL (9-20); Calcium 8.5 mg/dL (8.4-10.2); Carbon Dioxide 32 mmol/L (22-30); Chloride 100 mmol/L (98-107); Estimated CRCL calculation 96 ml/min; Estimated Glomerular Filt Rate > 60; Glucose 126 mg/dL (65-110); Lipase 146 U/L (23-300); Sodium 139 mmol/L (137-145)
--- NOTE | 2022-12-20 07:21 | ED.GENADULT ---
HPI - General Adult General Chief complaint: Weakness Stated complaint: generalized wekaness Time Seen by Provider: 12/20/22 07:00 History of Present Illness HPI narrative: 72-year-old male presented the emergency department for evaluation of left lower quadrant abdominal pain and generalized fatigue. Patient states the lower abdominal pain started approximate 2 days ago he describes it as a pinching pain and that the pain has been slowly worsening. Patient denies any associated nausea vomiting diarrhea chest pain or shortness of breath with this. Patient denies any prior history of kidney stones or diverticulitis. Patient did have colonoscopy approximately 2 years ago. Patient denies any chest pain or diaphoresis with this pain. Patient does have a prior history of CABG. Patient is unsure when he had a last stress test Related Data Home Medications Medication Instructions Recorded Confirmed hydrochlorothiazide 12.5 mg capsule 12.5 mg PO QAM 06/29/19 06/29/22 metoprolol succinate 50 mg 50 mg PO QAM 06/29/19 06/29/22 tablet,extended release 24 hr fosinopril 20 mg tablet 20 mg PO QAM 07/12/19 06/29/22 atorvastatin 20 mg tablet 20 mg PO QHS 03/17/21 06/29/22 aspirin 81 mg capsule 81 mg PO DAILY 12/22/21 06/29/22 cholecalciferol (vitamin D3) 50 50 mcg PO DAILY 06/29/22 06/29/22 mcg (2,000 unit) tablet Allergies Allergy/AdvReac Type Severity Reaction Status Date / Time prednisolone AdvReac Unknown Agitated Verified 06/29/22 10:27 Review of Systems Review of Systems: All systems reviewed & are unremarkable except as noted in HPI and below [facility] Past Medical History Medical History CAD (coronary artery disease) Eczema of lower leg Essential (primary) hypertension Gastritis Left knee DJD Obesity Prediabetes Ventral hernia without obstruction or gangrene Vitamin D deficiency Surgical History Surgical History History of cholecystectomy 06/2010 History of laparoscopy (~2020) 03/2021 - Left knee medial and lateral meniscus repair Hx of coronary artery bypass graft 05/2009 and 1985 Family History Family History Father Heart disease Father Family history of cardiovascular disease Other Cerebrovascular accident Hypertension Social History Social History Smoking packs per day: 1 Smoking cigarettes per day: 20.0 Years smoked: 5 Smoking pack-years: 5.00 Smoking status: Former smoker Tobacco type: cigarettes Second hand tobacco smoke exposure: No Smoking end date: 02/06/79 Alcohol intake: current Drinks per week: 3 Alcohol use details: 2 beers consumed weekly Substance use: never Substance use type: does not use Living arrangements: with family Additional living arrangements comments: Gender identity (if verbalized by the patient): Male Spiritual care concerns: No Exam Narrative: APPEARANCE: Well appearing, no pain, no distress, well-nourished. HEAD: normocephalic, atraumatic. EYES: PERRLA/EOMI, conjunctivae clear. NOSE: Normal no drainage NECK: Supple. No adenopathy, no masses. RESPIRATORY: Airway patent, respirations nonlabored. Clear to auscultation bilaterally, no rales, rhonchi, wheezing. CARDIOVASCULAR: Regular rate and rhythm without murmurs rubs or gallops. ABDOMINAL: Soft, left lower quadrant tenderness to palpation MUSCULOSKELETAL: Moves all extremities. Strength/ROM intact, No edema, No calf tenderness. NEURO: Alert. Cranial nerves II through XII intact. SKIN: Warm, dry. Normal Color Course Course Emergency Course: 72-year-old male presenting to the ED for evaluation of left lower quadrant pain. Patient is afebrile with no leukocytosis. Patient's vital signs are stable. Patient's CMP is within normal limits.
[2022-12-20 07:27] LABS: Troponin I < 0.012 ng/mL (0.000-0.034)
[2022-12-20 07:29] LABS: INR 1.1; Prothrombin Time 14.4 Seconds (11.1-14.7)
[2022-12-20 07:30] LABS: Partial Thromboplastin Time 31.4 SECONDS (22.3-36.8)
[2022-12-20 08:15] LABS: Influenza A QL RT-PCR Negative (Negative); Influenza B QL RT-PCR Negative (Negative); RSV RNA, RT-PCR Negative (Negative); SARS-CoV-2 RNA PCR Negative (Negative)
--- NOTE | 2022-12-20 09:49 | PC.NURSE ---
pt unable to provide urine sample at this time and is declining straight cath.
[2022-12-20 10:24] LABS: Troponin I < 0.012 ng/mL (0.000-0.034)
[2022-12-20 11:11] LABS: Appearance Urine Clear (Clear); Bilirubin Urine Negative (Negative); Blood Urine Negative (Negative); Color Urine Yellow (Yellow); Glucose Urine UA Negative (Negative); Ketones Urine Negative (Negative); Leukocyte Esterase Ur Negative LEU/UL (Negative); Nitrate Urine Negative (Negative); Protein Urine Negative (Negative); pH Urine 6.5 (5.0-9.0)
[2022-12-20 11:14] LABS: Add Urine Microscopic? NO; Specific Grav Ur 1.039 (1.001-1.035)
== END 2022-12-20 11:07 | disposition home or self-care (01) ==
PROVIDERS: Emergency Medicine; Emergency Provider Emergency Medicine; PCP Family Medicine
DX: R10.32 Left lower quadrant pain (principal); Z20.822 Contact with and (suspected) exposure to COVID-19; I25.10 Atherosclerotic heart disease of native coronary artery without angina pectoris; I10 Essential (primary) hypertension; R73.03 Prediabetes; E55.9 Vitamin D deficiency, unspecified; M17.12 Unilateral primary osteoarthritis, left knee; E66.9 Obesity, unspecified; Z68.35 Body mass index [BMI] 35.0-35.9, adult; Z95.1 Presence of aortocoronary bypass graft; Z87.891 Personal history of nicotine dependence; Z90.49 Acquired absence of other specified parts of digestive tract; Z79.82 Long term (current) use of aspirin; I49.3 Ventricular premature depolarization; I45.10 Unspecified right bundle-branch block; R94.31 Abnormal electrocardiogram [ECG] [EKG]; R93.7 Abnormal findings on diagnostic imaging of other parts of musculoskeletal system
CPT/HCPCS: 36415; 74177; 80053; 81003; 83690; 84484; 85025; 85610; 85730; 87637; 93005; 99284; Q9967

== ENCOUNTER 2022-12-28 09:16 | Outpatient (CLI) | payer MEDICARE, SELFPAY ==
[2022-12-28 19:04] LABS: Alanine Aminotransferase 33 U/L (6-50); Alkaline Phosphatase 97 U/L (38-126); Anion Gap 4 mmol/L (8-16); Aspartate Amino Transferase 40 U/L (17-59); Bilirubin,Total 0.8 mg/dL (0.2-1.3); Blood Urea Nitrogen 13 mg/dL (9-20); Calcium 8.7 mg/dL (8.4-10.2); Carbon Dioxide 34 mmol/L (22-30); Chloride 100 mmol/L (98-107); Estimated Glomerular Filt Rate > 60; Glucose 114 mg/dL (65-110); Potassium 4.1 mmol/L (3.4-5.0); Sodium 138 mmol/L (137-145)
[2022-12-28 21:12] LABS: Hemoglobin A1C 5.8 % (<5.7)
== END 2022-12-28 09:17 | disposition home or self-care (01) ==
LOC: ANHGOSHLAB 09:17
PROVIDERS: PCP Family Medicine; Visit Provider Family Medicine
DX: R73.03 Prediabetes (principal); I10 Essential (primary) hypertension
CPT/HCPCS: 36415; 80053; 83036

== ENCOUNTER 2023-01-05 08:51 | Outpatient (CLI) | payer MEDICARE, SELFPAY ==
--- NOTE | ~2023-01-05 | NM_ITS ---
EXAMINATION: NM bone scan whole body DATE: 01/05/2023 14:25 INDICATION: Unspecified disorder of bone TECHNIQUE: 22.0 mCi Tc-99m HDP was administered intravenously. Delayed whole-body scintigrams were o btained. COMPARISON: CT abdomen pelvis dated 12/20/2022 and left knee radiographs dated 07/02/2020 and 03/11/2021 FINDINGS: Focus of moderate increased uptake at the distal metadiaphyseal region of the left femur corresponds to a chronic sclerotic lesion on prior radiographs with appearance prior radiographs favoring an ench ondroma over bone infarct mild likely degenerative joint centered uptake at the medial compartment of both knees and at the bilateral acromioclavicular and left sternoclavicular joints joints. Mild upta ke at the right and minimal at the left anterior tibial tuberosities likely related to patellar enthe sophytes. Additional likely degenerative focus of mild uptake at the lateral aspect of the right susu ral head with location suggesting this may be related to calcific tendinitis or other rotator cuff di sease. No other foci of abnormal bone uptake to suggest osseous metastatic disease. Specifically no l esions of concern identified in the spine. Of note bone scan can be insensitive for lytic metastases and multiple myeloma IMPRESSION: 1. Atypical focus of prominent uptake in the distal metadiaphyseal region of the left femur which tamica ears to correspond to a chronic enchondroma. 2. No other lesions suspicious for osseous metastatic disease. Of note, bone scan can be insensitive for lytic metastases and multiple myeloma. Reviewed, dictated and finalized at location A. IMPRESSION: 1. Atypical focus of prominent uptake in the distal metadiaphyseal region of th e left femur which appears to correspond to a chronic enchondroma. 2. No other lesions suspicious for osseous metastatic disease. Of note, bone sc an can be insensitive for lytic metastases and multiple myeloma.
== END 2023-01-05 08:52 | disposition home or self-care (01) ==
PROVIDERS: PCP Family Medicine; Visit Provider Family Medicine
DX: M54.50 Low back pain, unspecified (principal); M89.9 Disorder of bone, unspecified
CPT/HCPCS: 78306; A9503

== ENCOUNTER 2023-01-14 15:05 | Outpatient (CLI) | payer MEDICARE, SELFPAY ==
[2023-01-14 16:42] LABS: Immunoglobulin A 290 mg/dL (70-400); Immunoglobulin G 1126 mg/dL (700-1600)
[2023-01-14 17:05] LABS: Prostate Specific Antigen 0.7 ng/mL (< OR = 4.0)
[2023-01-14 18:04] LABS: Immunoglobulin M < 25 mg/dL (40-230)
[2023-01-18 15:45] LABS: Albumin 3.9 g/dL (3.8-4.8); Alpha 1 Globulin 0.4 g/dL (0.2-0.3); Alpha 2 Globulin 0.9 g/dL (0.5-0.9); Beta 1 Globulin 0.5 g/dL (0.4-0.6); Gamma Globulin 1.2 g/dL (0.8-1.7); Protein, Total 7.3 g/dL (6.1-8.1)
[2023-01-19 10:24] LABS: Kappa\\Lambda Light Chains 0.74 (0.26-1.65); Lambda Light Chain 27.6 mg/L (5.7-26.3)
== END 2023-01-14 15:06 | disposition home or self-care (01) ==
LOC: ANHLAB 15:06
PROVIDERS: PCP Family Medicine; Visit Provider Internal Medicine Hematology & Oncology
DX: M89.9 Disorder of bone, unspecified (principal)
CPT/HCPCS: 36415; 82784; 83883; 84153; 84155; 84165

== ENCOUNTER 2023-07-05 09:37 | Outpatient (CLI) | payer MEDICARE, SELFPAY ==
[2023-07-05 12:21] LABS: Basophils Absolute Auto 0.1 K/mm3 (0.0-0.1); Basophils Percent Auto 0.8 % (0.2-1.2); Eosinophils Absolute Auto 0.3 K/mm3 (0-0.3); Eosinophils Percent Auto 4.4 % (0-4.4); Hematocrit 45.9 % (42.0-52.0); Hemoglobin 14.8 g/dL (14.0-18.0); Immature Granulocyte Absolute 0.03 K/mm3 (0.00-0.031); Immature Granulocyte Percent A 0.5 % (0-0.5); Lymphocytes Percent Auto 17.4 % (18.3-44.2); Mean Corpuscular HGB Conc 32.2 g/dl (32-36); Mean Corpuscular Hemoglobin 30.2 pg (26-34); Mean Corpuscular Volume 93.7 fl (80-100); Mean Platelet Volume 11.9 fl (7.4-10.4); Monocytes Absolute Auto 0.8 K/mm3 (0.1-0.6); Monocytes Percent Auto 12.2 % (2.6-8.5); Neutrophils Absolute Auto 4.1 K/mm3 (1.3-6.7); Neutrophils Percent Auto 64.7 % (45.5-73.1); Platelet Count Result 185 k/mm3 (150-375); Red Cell Distribution Width 13.3 % (11.5-14.5); White Blood Count 6.3 K/mm3 (4.5-10.0)
[2023-07-05 12:32] LABS: Alanine Aminotransferase 37 U/L (6-50); Albumin Level 4.1 g/dL (3.5-5.1); Alkaline Phosphatase 81 U/L (38-126); Anion Gap 9 mmol/L (8-16); Aspartate Amino Transferase 47 U/L (17-59); Blood Urea Nitrogen 14 mg/dL (9-20); Calcium 9.3 mg/dL (8.4-10.2); Carbon Dioxide 32 mmol/L (22-30); Chloride 100 mmol/L (98-107); Cholesterol 120 mg/dL (0-200); Estimated Glomerular Filt Rate > 60; Glucose 108 mg/dL (65-110); HDL Direct 30 mg/dL; Potassium 4.1 mmol/L (3.4-5.0); Sodium 141 mmol/L (137-145); Triglycerides 92 mg/dL (<150)
[2023-07-05 12:43] LABS: LDL Cholesterol Direct 72 mg/dL
[2023-07-05 12:54] LABS: Hemoglobin A1C 5.7 % (<5.7)
[2023-07-05 12:58] LABS: Prostate Specific Antigen 1.2 ng/mL (< OR = 4.0)
== END 2023-07-05 09:38 | disposition home or self-care (01) ==
PROVIDERS: PCP Family Medicine; Visit Provider Family Medicine
DX: Z12.5 Encounter for screening for malignant neoplasm of prostate (principal); E55.9 Vitamin D deficiency, unspecified; E53.8 Deficiency of other specified B group vitamins; R73.03 Prediabetes; I10 Essential (primary) hypertension; E78.5 Hyperlipidemia, unspecified
CPT/HCPCS: 36415; 80053; 80061; 82306; 82607; 83036; 84153; 84443; 85025; G0103

== ENCOUNTER 2023-08-19 09:49 | Outpatient (CLI) | payer MEDICARE, SELFPAY ==
[2023-08-19 10:19] LABS: Basophils Percent Auto 0.6 % (0.2-1.2); Eosinophils Absolute Auto 0.3 K/mm3 (0-0.3); Eosinophils Percent Auto 4.3 % (0-4.4); Hemoglobin 14.9 g/dL (14.0-18.0); Immature Granulocyte Absolute 0.03 K/mm3 (0.00-0.031); Immature Granulocyte Percent A 0.5 % (0-0.5); Lymphocytes Absolute Auto 1.41 K/mm3 (0.9-3.2); Lymphocytes Percent Auto 22.7 % (18.3-44.2); Mean Corpuscular HGB Conc 33.9 g/dl (32-36); Mean Corpuscular Hemoglobin 30.6 pg (26-34); Mean Corpuscular Volume 90.3 fl (80-100); Mean Platelet Volume 11.2 fl (7.4-10.4); Monocytes Absolute Auto 0.9 K/mm3 (0.1-0.6); Monocytes Percent Auto 15.1 % (2.6-8.5); Neutrophils Absolute Auto 3.5 K/mm3 (1.3-6.7); Neutrophils Percent Auto 56.8 % (45.5-73.1); Platelet Count Result 187 k/mm3 (150-375); Red Blood Count 4.87 M/mm3 (4.6-6.20); Red Cell Distribution Width 13.1 % (11.5-14.5); White Blood Count 6.2 K/mm3 (4.5-10.0)
[2023-08-19 13:39] LABS: Alanine Aminotransferase 42 U/L (6-50); Alkaline Phosphatase 107 U/L (38-126); Anion Gap 8 mmol/L (8-16); Aspartate Amino Transferase 36 U/L (17-59); Bilirubin,Total 0.8 mg/dL (0.2-1.3); Blood Urea Nitrogen 14 mg/dL (9-20); Calcium 9.1 mg/dL (8.4-10.2); Carbon Dioxide 31 mmol/L (22-30); Chloride 101 mmol/L (98-107); Estimated Glomerular Filt Rate > 60; Glucose 116 mg/dL (65-110); Potassium 4.3 mmol/L (3.4-5.0); Sodium 140 mmol/L (137-145)
[2023-08-19 13:48] LABS: Immunoglobulin A 325 mg/dL (70-400); Immunoglobulin G 1338 mg/dL (700-1600); Immunoglobulin M 28 mg/dL (40-230)
[2023-08-22 15:30] LABS: Kappa\\Lambda Light Chains 0.96 (0.26-1.65); Lambda Light Chain 26.7 mg/L (5.7-26.3)
[2023-08-23 16:03] LABS: Albumin 3.9 g/dL (3.8-4.8); Alpha 1 Globulin 0.3 g/dL (0.2-0.3); Alpha 2 Globulin 0.8 g/dL (0.5-0.9); Beta 1 Globulin 0.5 g/dL (0.4-0.6); Gamma Globulin 1.2 g/dL (0.8-1.7); Protein, Total 7.1 g/dL (6.1-8.1)
== END 2023-08-19 09:50 | disposition home or self-care (01) ==
PROVIDERS: PCP Family Medicine; Visit Provider Internal Medicine Hematology & Oncology
DX: M89.9 Disorder of bone, unspecified (principal)
CPT/HCPCS: 36415; 80053; 82784; 83883; 84155; 84165; 85025

== ENCOUNTER 2023-09-22 09:15 | Outpatient (CLI) | payer MEDICARE, SELFPAY ==
--- NOTE | ~2023-09-22 | CT_ITS ---
EXAMINATION: CT facial bones w con DATE: 09/22/2023 09:44 INDICATION: Right facial edema. TECHNIQUE: Computed tomography (CT) of the facial bones and maxillofacial region was performed with 7 5 mL Omnipaque 350 intravenous contrast. Automated exposure control and iterative reconstruction tech [employer] were employed. The dose-length product was 323.16 mGy-cm. COMPARISON: None. FINDINGS: There is leftward deviation of the nasal septum. There is moderate mucosal thickening in le ft maxillary sinus with thickening and sclerosis of the sinus peña, consistent with chronic sinusiti s. The orbits are normal. The parotid glands are normal. There is moderate cervical spondylosis. IMPRESSION: 1. Chronic left maxillary sinusitis. Reviewed, dictated and finalized at location A. ER OPERATOR
[2023-09-22 09:32] LABS: Estimated Glomerular Filt Rate > 60
== END 2023-09-22 09:16 ==
LOC: MICIMG 09:16
PROVIDERS: PCP Dentist General Practice; Visit Provider Dentist General Practice
DX: R22.0 Localized swelling, mass and lump, head (principal); J32.0 Chronic maxillary sinusitis
CPT/HCPCS: 70487; Q9967

== ENCOUNTER 2024-07-03 09:34 | Outpatient (CLI) | payer MEDICARE, SELFPAY ==
[2024-07-03 09:55] LABS: Basophils Absolute Auto 0.1 K/mm3 (0.0-0.1); Basophils Percent Auto 0.8 % (0.2-1.2); Eosinophils Absolute Auto 0.3 K/mm3 (0-0.3); Hematocrit 43.7 % (42.0-52.0); Hemoglobin 15.2 g/dL (14.0-18.0); Immature Granulocyte Absolute 0.02 K/mm3 (0.00-0.031); Immature Granulocyte Percent A 0.3 % (0-0.5); Lymphocytes Absolute Auto 1.45 K/mm3 (0.9-3.2); Mean Corpuscular HGB Conc 34.8 g/dl (32-36); Mean Corpuscular Hemoglobin 30.8 pg (26-34); Mean Corpuscular Volume 88.5 fl (80-100); Mean Platelet Volume 10.8 fl (7.4-10.4); Monocytes Absolute Auto 0.9 K/mm3 (0.1-0.6); Monocytes Percent Auto 15.4 % (2.6-8.5); Neutrophils Absolute Auto 3.3 K/mm3 (1.3-6.7); Neutrophils Percent Auto 54.5 % (45.5-73.1); Platelet Count Result 184 k/mm3 (150-375); Red Blood Count 4.94 M/mm3 (4.6-6.20)
[2024-07-03 11:12] LABS: Alanine Aminotransferase 51 U/L (6-50); Albumin Level 4.3 g/dL (3.5-5.1); Alkaline Phosphatase 101 U/L (38-126); Anion Gap 5 mmol/L (4-12); Aspartate Amino Transferase 41 U/L (17-59); Bilirubin,Total 0.9 mg/dL (0.2-1.3); Blood Urea Nitrogen 16 mg/dL (9-20); Calcium 9.2 mg/dL (8.4-10.2); Carbon Dioxide 32 mmol/L (22-30); Chloride 102 mmol/L (98-107); Estimated Glomerular Filt Rate > 60; Glucose 106 mg/dL (65-110); Immunoglobulin A 376 mg/dL (70-400); Immunoglobulin G 1309 mg/dL (700-1600); Immunoglobulin M 34 mg/dL (40-230); Potassium 4.1 mmol/L (3.4-5.0); Sodium 139 mmol/L (137-145)
[2024-07-05 02:39] LABS: Protein, Total 7.2 g/dL (6.1-8.1)
== END 2024-07-03 09:35 | disposition home or self-care (01) ==
PROVIDERS: PCP Family Medicine; Visit Provider Internal Medicine Hematology & Oncology
DX: M89.9 Disorder of bone, unspecified (principal)
CPT/HCPCS: 36415; 80053; 82784; 83883; 84155; 84165; 85025

== ENCOUNTER 2024-07-13 10:16 | Outpatient (CLI) | payer MEDICARE, SELFPAY ==
[2024-07-13 13:12] LABS: Alanine Aminotransferase 52 U/L (6-50); Albumin Level 4.1 g/dL (3.5-5.1); Alkaline Phosphatase 94 U/L (38-126); Anion Gap 3 mmol/L (4-12); Aspartate Amino Transferase 62 U/L (17-59); Bilirubin,Total 1.1 mg/dL (0.2-1.3); Blood Urea Nitrogen 17 mg/dL (9-20); Calcium 9.1 mg/dL (8.4-10.2); Carbon Dioxide 34 mmol/L (22-30); Chloride 103 mmol/L (98-107); Cholesterol 124 mg/dL (0-200); Estimated Glomerular Filt Rate > 60; Glucose 120 mg/dL (65-110); HDL Direct 32 mg/dL; Potassium 4.4 mmol/L (3.4-5.0); Sodium 140 mmol/L (137-145); Triglycerides 120 mg/dL (<150)
[2024-07-13 13:17] LABS: Vitamin D 25 Hydroxy 61.2 ng/mL
[2024-07-13 13:18] LABS: Hemoglobin A1C 6.1 % (<5.7)
[2024-07-13 13:32] LABS: LDL Cholesterol Direct 63 mg/dL
[2024-07-13 13:33] LABS: Prostate Specific Antigen 0.9 ng/mL (< OR = 4.0)
== END 2024-07-13 10:17 | disposition home or self-care (01) ==
PROVIDERS: PCP Family Medicine; Visit Provider Family Medicine
DX: E78.5 Hyperlipidemia, unspecified (principal); I10 Essential (primary) hypertension; E53.8 Deficiency of other specified B group vitamins; R73.9 Hyperglycemia, unspecified; E55.9 Vitamin D deficiency, unspecified; Z12.5 Encounter for screening for malignant neoplasm of prostate
CPT/HCPCS: 36415; 80053; 80061; 82306; 82607; 83036; 84153; 84443; G0103

== ENCOUNTER 2024-11-14 08:30 | Outpatient (CLI) | payer MEDICARE, SELFPAY ==
--- NOTE | ~2024-11-14 | XR_ITS ---
XR knee LT min 4V 11/14/2024 08:50 Indication: Prior left knee surgery. Knee pain. Procedure: 3 views left knee Comparison: 07/02/2020 Findings: There is some moderate-severe tricompartment osteoarthritis, most advanced in the medial co mpartment. There is chondrocalcinosis. Small joint effusion. There is irregular sclerosis in the dist al femoral diaphysis which may represent bone infarct or enchondroma. No significant change from prio r study allowing for technique. Impression: 1: Moderate-severe tricompartment osteoarthritis which has progressed compared with prior study. Reviewed, dictated and finalized at location A. Impression: 1: Moderate-severe tricompartment osteoarthritis which has progressed compared with prior study.
--- NOTE | ~2024-11-14 | XR_ITS ---
XR knee RT min 4V 11/14/2024 08:50 Indication: Right knee pain Procedure: 4 views right knee Comparison: No prior studies for comparison. Findings: There is mild-moderate tricompartment osteoarthritis. Small joint effusion. No fracture or traumatic malalignment. No foreign bodies. There is mild atherosclerosis. Impression: 1: Mild-moderate osteoarthritis of the right knee. Reviewed, dictated and finalized at location A. Impression: 1: Mild-moderate osteoarthritis of the right knee.
--- OUTSIDE RECORDS SUMMARY | 2024-11-14 08:44 | XMS_ITS | Encounter Summary ---
Author Organization [facility] Address [address] [place] [address] Care Team Providers Care Park Maintenance Technician Name Role Phone Génesis Tran MD Primary Care Provider Encounter Details Date Type Department Care Team (Latest Contact Info) Description 07/20/2006 Outpatient Historical HIS CARD GAME AUTHOR Jeff Hameed MD [address] [facility] [address] [place] [address] Coronary Atherosclerosis of [place] Coronary Artery (Primary Dx) Social History Tobacco Use Types Packs/Day Years Used Date Smoking Tobacco: Never Assessed Sex and Gender Information Value Date Recorded Sex Assigned at Not on file Legal Sex Male 5:07 AM SOLID DIE CUTTER Gender Identity Not on file Sexual Orientation Not on file documented as of this encounter Plan of Treatment Upcoming Encounters Date Type Department Care Team (Late st Contact Info) Description 07/20/2025 8:45 AM SOLID DIE CUTTER Office Visit [facility] Oncology and Hematology - [place] [address] [facility] [address] [place] [address] Tad Hemphill MD [address] [place] [address] documented as of this encounter Visit Diagnoses Diagnosis Coronary atherosclerosis of [place] coronary artery- Primary documented in this encounter Care Teams Park Maintenance Technician Relationship Specialty Start Date End Date Génesis Tran MD [address] [place] [address] PCP - General Family Practice 6/8/23 documented as of this encounter
--- OUTSIDE RECORDS SUMMARY | 2024-11-14 08:44 | XMS_ITS | Referral Summary ---
Author Organization [facility] [address] Address [address] [place] [address] Care Team Providers Care Principal Android Developer Name Role Phone Génesis Tran MD Primary Care Provider Encounters Date Type Department Care Team Description 09/21/2024 1:00 PM ELECTROMEDICAL EQUIPMENT REPAIRER Office Visit [facility] Cardiology at [address] [place] [address] Jeff Hameed MD Hx of CABG (Primary Dx) from Last 3 Months Allergies Active Allergy Reactions Criticality Noted Date Comments Prednisone Anxiety Low 08/26/2021 Medications aspirin 81 mg enteric coated tablet Take 1 tablet (81 mg total) by mouth daily 30 tablet 11 08/26/19 22 026 Active cyanocobalamin, vitamin B-12, 1,000 mcg lozenge DISSOLVE 1 TABLET BY MOUTH EVERY DAY 06/30/20 22 Active cholecalciferol (VITAMIN D-3) 2000 unit tablet Active fosinopriL (MONOPRIL) 20 mg tablet TAKE 1 TABLET(20 MG) BY MOUTH DAILY 90 tablet 08/15/19 25 Active hydroCHLOROthiazid e (MICROZIDE) 12.5 mg capsuleIndications :Coronary atherosclerosis TAKE 1 CAPSULE(12. 5 MG) BY MOUTH DAILY 90 capsule 08/15/19 25 Active atorvastatin (LIPITOR) 40 mg tablet TAKE 1 TABLET(40 MG) BY MOUTH DAILY 90 tablet 3 10/03/19 25 Active metoprolol XL (TOPROL-XL) 50 mg extended release tablet TAKE 1 TABLET(50 MG) BY MOUTH DAILY 90 tablet 3 11/03/19 25 Active metoprolol XL (TOPROL-XL) 50 mg extended release tablet TAKE 1 TABLET(50 MG) BY MOUTH DAILY 90 tablet 08/04/20 24 025 Discontinued Active Problems Problem Noted Date Diagnosed Date Morbid (severe) obesity due to excess calories 0 09/01/2022 Hx of CABG 08/18/2017 Coronary arteriosclerosis in [place] artery 06/18 Overview (11/13/2016): Coronary arteriosclerosis in [place] artery Social History Tobacco Use Types Packs/Day Years Used Date Smoking Tobacco: Former Cigarettes Q uit: 08/18/1978 Smokeless Tobacco: Never Tobacco Cessation:Counseling Given: Not Answered Alcohol Use Standard Drinks/Week Comments Yes 3 (1 standard drink = 0.6 oz pur e alcohol) Sex and Gender Information Value Date Recorded Sex Assigned at Not on file Legal Sex Male 3:49 PM ELECTROMEDICAL EQUIPMENT REPAIRER Gender Identity Male 08/23/2021 9:11 AM ELECTROMEDICAL EQUIPMENT REPAIRER Sexual Orientation Not on file Last Filed Vital Signs Vital Sign Reading Time Taken Comments Blood Pressure 130/82 09/21/2024 12:56 PM ELECTROMEDICAL EQUIPMENT REPAIRER Pulse 82 09/21/2024 12:56 PM ELECTROMEDICAL EQUIPMENT REPAIRER Temperature - - Respiratory Rate - - Oxygen Saturation 95% 09/21/2024 12:56 PM ELECTROMEDICAL EQUIPMENT REPAIRER Inhaled Oxygen Concentration - - Weight 110.2 kg (243 lb) 09/21/2024 12:56 PM ELECTROMEDICAL EQUIPMENT REPAIRER Height 172.7 cm (5' 8 ) 09/21/2024 12:56 PM ELECTROMEDICAL EQUIPMENT REPAIRER Body Mass Index 36.95 09/21/2024 12:56 PM ELECTROMEDICAL EQUIPMENT REPAIRER Plan of Treatment Not on file Insurance [facility] MEDICARE ADVANTAGE [facility] Address: [address] [address] [place] [address] UHC MEDICARE ADVANTAGE Care Teams Principal Android Developer Relationship Specialty Start Date End Date Génesis Tran MD PCP - General Family Practice 08/18/17
--- OUTSIDE RECORDS SUMMARY | 2024-11-14 08:44 | XMS_ITS | Clinical Summary ---
Author Organization [facility] [address] Address [address] [place] [address] Care Team Providers Care Clinical Support Manager Name Role Phone Génesis Tran MD Primary Care Provider Allergies Active Allergy Reactions Criticality Noted Date [...] Hx of CABG 08/18/2017 Coronary arteriosclerosis in [place] artery 06/18 Overview (11/13/2016): Coronary arteriosclerosis in [place] artery Encounters Date Type Department Care Team Description 09/21/2024 1:00 PM HEAVY EQUIPMENT OPERATOR/PAVER Office Visit [facility] Cardiology at [address] [place] [phone] Jeff Hameed MD Hx of CABG (Primary Dx) from Last 3 Months Surgical History Surgery Date Site/Laterality Comments CHOLECYSTECTOMY CORONARY ARTERY BYPASS GRAFT Medical History Medical History Date Comments Gastroesophageal reflux disease GERD Heart disease Hypertension Arthritis Family History Medical History Relation Name Comments Stroke Father Juan C Mcclain Cancer Maternal Grandfather Lauro Watson Stroke Maternal Grandmother Edwina Watson Stroke Paternal Grandfather Santo Mcclain Heart attack Sister 1 Flower [place] Stroke Sister 2 Fiordaliza Leal Relation Name Status Comments Father Juan C Mcclain Maternal Grandfather Lauro Watson Maternal Grandmother Edwina Watson Paternal Grandfather Santo Mcclain Sister 1 Flower [place] Sister 2 Fiordaliza Leal Social History Tobacco Use Types Packs/Day Years Used Date Smoking Tobacco: Former Cigarettes Q uit: 08/18/1978 Smokeless Tobacco: Never Tobacco Cessation:Counseling Given: Not Answered Alcohol Use Standard Drinks/Week Comments Yes 3 (1 standard drink = 0.6 oz pur e alcohol) Sex and Gender Information Value Date Recorded Sex Assigned at Not on file Legal Sex Male 3:49 PM HEAVY EQUIPMENT OPERATOR/PAVER Gender Identity Male 08/23/2021 9:11 AM HEAVY EQUIPMENT OPERATOR/PAVER Sexual Orientation Not on file Obstetrics History Last Filed Vital Signs Vital Sign Reading Time Taken Comments Blood Pressure 130/82 09/21/2024 12:56 PM HEAVY EQUIPMENT OPERATOR/PAVER Pulse 82 09/21/2024 12:56 PM HEAVY EQUIPMENT OPERATOR/PAVER Temperature - - Respiratory Rate - - Oxygen Saturation 95% 09/21/2024 12:56 PM HEAVY EQUIPMENT OPERATOR/PAVER Inhaled Oxygen Concentration - - Weight 110.2 kg (243 lb) 09/21/2024 12:56 PM HEAVY EQUIPMENT OPERATOR/PAVER Height 172.7 cm (5' 8 ) 09/21/2024 12:56 PM HEAVY EQUIPMENT OPERATOR/PAVER Body Mass Index 36.95 09/21/2024 12:56 PM HEAVY EQUIPMENT OPERATOR/PAVER Plan of Treatment Health Maintenance Due Date Last Done Comments Colon Cancer Screening-Colonoscopy 1950 Depression Screening 1950 Fall Risk Assessment 1950 Hepatitis C Screening 1950 DTaP/Tdap/Td Vaccine (1 - Tdap) 1961 Hepatitis B Screening 1968 Zoster Vaccine (1 of 2) 2000 Abdominal Aortic Aneurysm (A AA) Screen 2015 Well Visit 65+ 2015 Pneumococcal vaccine 65+ (2 of 2 - PPSV23) 05/30/2018 05/30/2017 Influenza Vaccine (#1) 2024 9, 05/04/2018, 08/09/2017, Additional history exists Insurance MEDICARE ADVANTAGE [facility] Address: [address] [address] [place] [id number] [facility] MEDICARE ADVANTAGE [facility] Address: [address] [address] [place] [address] Care Teams Clinical Support Manager Relationship Specialty Start Date End Date Génesis Tran MD PCP - General Family Practice 08/18/17
--- OUTSIDE RECORDS SUMMARY | 2024-11-14 08:44 | XMS_ITS | Clinical Summary ---
Author Organization [facility] Address [facility] [place] [address] Care Team Providers Care Technical Service Specialist Name Role Phone Unavailable Primary Care Provider Unavailabl e Social History Tobacco Use Types Packs/Day Years Used Date Smoking Tobacco: Never Assessed Sex and Gender Information Value Date Recorded Sex Assigned at Not on file Legal Sex Male 5:15 PM CDT Gender Identity Not on file Sexual Orientation Not on file Plan of Treatment Health Maintenance Due Date Last Done Comments Colorectal Cancer Screening Colonoscopy (10 Years) 1950 Hepatitis C 1968 DTaP, Tdap and Td Vaccines ( 1 - Tdap) 1969 Zoster Vaccines (1 of 2) 2000 Pneumococcal Vaccine: 65+ Ye ars (1 of 1 - PCV) 2015 COVID-19 Vaccine ( - 2023-2 5 season) 2024 RSV Immunization or 60+ Years (1 - 1-dose 75+ series) 2025 Meningococcal B Vaccine Aged Out No l onger eligible based on patient's age to complete this topic Meningococcal Vaccine Aged Out No king elmer eligible based on patient's age to complete this topic RSV Immunizations Under 20 Months Aged Out No longer eligible based on patient's age to complete this topic
--- OUTSIDE RECORDS SUMMARY | 2024-11-14 08:44 | XMS_ITS | Clinical Summary ---
Author Organization [facility] Address [address], [address] [address] Phone Care Team Providers Care Bridge Rigger Name Role Phone Génesis Tran MD Primary Care Provider Social History Tobacco Use Types Packs/Day Years Used Date Smoking Tobacco: Never Assessed Sex and Gender Information Value Date Recorded Sex Assigned at Not on file Legal Sex Male 8:35 PM CDT Gender Identity Not on file Sexual Orientation Not on file Plan of Treatment Health Maintenance Due Date Last Done Comments Hepatitis C Virus (HCV) Screening 1950 TdaP Immunization 1950 Cologuard 2000 Immunochemical Fecal Occult Blood 2000 Pneumococcal Immunization (5 0+ years) (1 of 1 - PCV) 2000 Zoster Immunization (1 of 2) 2000 Influenza Immunization (#1) 2024 SARS-COV-2 Immunization ( - season) 2024 Respiratory Syncytial Virus (RSV) Immunization (Adult) (1 - 1-dose 75+ series) 2025 Colonoscopy 01/09/2031 01/09/2021 Colorectal Cancer Screening 01/09/2031 01/09/2021 Hepatitis B Immunization Aged Out No longer eligible based on patient's age to complete this topic Meningococcal Immunization (ACWY) Aged Out No longer eligible based on patient's age to complete this topic Rotavirus Immunization Aged Out No lo nger eligible based on patient's age to complete this topic Procedures Procedure Name Priority Date/Time Associated Diagnosis Comments HM COLONOSCOPY Routine 01/09/2021 from Last 3 Months or Most Recently Relevant to Health Maintenance Results * COLONOSCOPY (01/09/2021) Horacio Aguayo DO PROCEDURE/MINOR SURGICAL ORDERA BLES Final Result from Last 3 Months or Most Recently Relevant to Health Maintenance Insurance MEDICARE C [employer] Care Teams Bridge Rigger Relationship Specialty Start Date End Date Génesis Tran MD PCP - General Family Medicine 11/06/20
--- OUTSIDE RECORDS SUMMARY | 2024-11-14 08:44 | XMS_ITS | Clinical Summary ---
Author Organization [facility] Address [address] [place] [address] Care Team Providers Care Stave Mill Hand Name Role Phone Génesis Tran MD Primary Care Provider Allergies Active Allergy Reactions Criticality Noted Date Comments Prednisone Anxiety Low 08/26/2021 Medications aspirin (ECOTRIN EC) 81 mg Tablet, Delayed Release (E.C.) Take 81 mg by mouth daily. 08/26/2021 Active fosinopriL (MONOPRIL) 20 mg tablet TAKE 1 TABLET(20 MG) BY MOUTH EVERY DAY 2022 Active hydroCHLOROthia zide (MICROZIDE) 12.5 mg capsule 40 mg. 2022 Act jaylin cyanocobalamin, vitamin B-12, 1,000 mcg Lozenge DISSOLVE 1 TABLET BY MOUTH EVERY DAY 06/30/2022 Active cholecalciferol , Vitamin D3, 50 mcg (2,000 unit) Tablet Active cycloSPORINE (RESTASIS) 0.05 % emulsion instill 1 drop into both eyes twice a day 06/07/2024 Active Active Problems No known active problems Encounters Date Type Department Care Team Description 10/25/2024 External Device Data STL ABSTRACTION Provider, Abstract 10/25/2024 External Device Data STL ABSTRACTION Provider, Abstract 10/16/2024 External Device Data STL ABSTRACTION Provider, Abstract 10/14/2024 External Device Data STL ABSTRACTION Provider, Abstract 10/13/2024 External Device Data STL ABSTRACTION Provider, Abstract 10/11/2024 External Device Data STL ABSTRACTION Provider, Abstract 09/05/2024 External Device Data STL ABSTRACTION Provider, Abstract from Last 3 Months Family History Medical History Relation Name Comments Heart Disease Father Heart Disease Sister 1 Relation Name Status Comments Daughter Alive Father Mother Sister 1 Sister 2 Alive Son Alive Social History Tobacco Use Types Packs/Day Years Used Date Smoking Tobacco: Former Cigarettes Smokeless Tobacco: Never Tobacco Cessation:Counseling Given: Not Answered Alcohol Use Standard Drinks/Week Comments Yes 0 (1 standard drink = 0.6 oz pur e alcohol) rare Sex and Gender Information Value Date Recorded Sex Assigned at Not on file Legal Sex Male 5:07 AM PIECE GOODS PACKER Gender Identity Not on file Sexual Orientation Not on file Last Filed Vital Signs Vital Sign Reading Time Taken Comments Blood Pressure 139/69 07/14/2024 8:38 AM PIECE GOODS PACKER Pulse 70 07/14/2024 8:38 AM PIECE GOODS PACKER Temperature 36.7 C (98 F) 07/14/2024 8:38 AM PIECE GOODS PACKER Respiratory Rate 18 07/14/2024 8:38 AM PIECE GOODS PACKER Oxygen Saturation 94% 07/14/2024 8:38 AM PIECE GOODS PACKER Inhaled Oxygen Concentration - - Weight 108.9 kg (240 lb) 07/14/2024 8:38 AM PIECE GOODS PACKER Height - - Body Mass Index - - Plan of Treatment Upcoming Encounters Date Type Department Care Team (Late st Contact Info) Description 07/20/2025 8:45 AM PIECE GOODS PACKER Office Visit [facility] Oncology and Hematology [facility] [address] [facility] [address] [place] [address] Tad Hemphill MD [address] [facility] [address] [place] [address] Health Maintenance Due Date Last Done Comments DTAP/TDAP/TD VACCINES (1 - Tdap) 1969 FIT-DNA Q 3 years 1995 FIT/FOBT Q 1 year 1995 Flex Sig/CT Colonography Q 5 years 1995 PNEUMOCOCCAL VACCINE 50+ YEARS (1 of 1 - PCV) 08/17/19 ZOSTER VACCINE (1 of 2) 2000 Abdominal Aortic Aneurysm (AAA) Screening 2015 INFLUENZA VACCINE (#1) 2024 RSV VACCINE (60+ or ) (1 - 1-dose 75+ series) 2025 COLORECTAL SCREENING 01/09/2031 01/09/2021 Colorectal Cancer Screening 01/09/2031 Insurance Care Teams Stave Mill Hand Relationship Specialty Start Date End Date Génesis Tran MD [address] [place] [id number] PCP - General Family Practice 01/14/23
[2024-11-14 10:35] LABS: Basophils Absolute Auto 0.04 K/mm3 (0.00-0.10); Basophils Percent Auto 0.6 % (0.0-1.0); Eosinophils Absolute Auto 0.26 K/mm3 (0.02-0.50); Eosinophils Percent Auto 4.1 % (1.0-6.0); Hematocrit 42.4 % (37.0-46.0); Hemoglobin 14.4 g/dL (12.4-15.3); Immature Granulocyte Absolute 0.03 K/mm3 (0.00-0.00); Immature Granulocyte Percent A 0.5 % (0.0-0.0); Lymphocytes Absolute Auto 1.45 K/mm3 (1.10-4.50); Lymphocytes Percent Auto 22.7 % (18.0-42.0); Mean Corpuscular Hemoglobin 30.5 pg (27.0-31.0); Mean Corpuscular Volume 89.8 fL (78.0-102.0); Mean Platelet Volume 10.7 fl (8.7-11.0); Monocytes Absolute Auto 0.79 K/mm3 (0.10-0.90); Monocytes Percent Auto 12.4 % (2.0-11.0); Neutrophils Absolute Auto 3.81 K/mm3 (1.70-7.20); Neutrophils Percent Auto 59.7 % (50.0-70.0); Platelet Count Result 199 K/mm3 (150-420); Red Blood Count 4.72 M/mm3 (4.70-6.10); Red Cell Distribution Width 12.6 % (11.6-14.4); White Blood Count 6.4 K/mm3 (4.8-10.8)
--- NOTE | 2024-11-14 10:36 | ECG_ITS ---
Test Date: 2024-11-14 10:48:14 Measurements Intervals [place] Rate: 65 P: 52 VA: 188 QRS: 51 QRSD: 105 T: 81 QT: 450 QTc: 469 Interpretive Statements SINUS RHYTHM INCOMPLETE RIGHT BUNDLE BRANCH BLOCK MINIMAL Q WAVES- INFERIOR LEADS NONSPECIFIC ST & T-WAVE ABNORMALITY- HIGH LATERAL LEADS BASELINE ARTIFACT- V4 BORDERLINE ECG No previous ECG available for comparison Electronically Signed On 11-14-2024 11:38:46 CDT by Jass Coon D.O.
[2024-11-14 10:42] LABS: Add Urine Microscopic? YES; Appearance Urine Clear (Clear); Bilirubin Urine Negative (Negative); Blood Urine Negative (Negative); Color Urine Light Yellow (Yellow); Glucose Urine UA Negative (Negative); Ketones Urine Negative (Negative); Leukocyte Esterase Ur 2+ LEU/UL (Negative); Nitrate Urine Negative (Negative); Protein Urine Negative (Negative)
[2024-11-14 11:23] LABS: RBC Urine None seen /hpf (0-2)
[2024-11-14 11:24] LABS: Bacteria Urine 2+ /hpf; Squamous Epithelial Cell Urine Moderate /hpf (Few); WBC Urine 16-20 /hpf (0-3)
== END 2024-11-14 08:31 | disposition home or self-care (01) ==
PROVIDERS: PCP Family Medicine; Visit Provider Orthopaedic Surgery
DX: M25.562 Pain in left knee (principal); M25.561 Pain in right knee; I10 Essential (primary) hypertension; I25.10 Atherosclerotic heart disease of native coronary artery without angina pectoris; R53.83 Other fatigue; N39.0 Urinary tract infection, site not specified; I45.19 Other right bundle-branch block
CPT/HCPCS: 36415; 73564; 81001; 85025; 87086; 93005

== ENCOUNTER 2024-12-20 07:41 | Outpatient (CLI) | payer MEDICARE, SELFPAY ==
--- OUTSIDE RECORDS SUMMARY | 2024-12-20 07:47 | XMS_ITS | Encounter Summary ---
Author Organization [facility] Address [address] [place] [address] Care Team Providers Care Dog Breeder Name Role Phone Génesis Tran MD Primary Care Provider Encounter Details Date Type Department Care Team (Latest Contact Info) Description 07/20/2006 Outpatient Historical HIS CARD CONTOUR BAND SAW OPERATOR VERTICAL Jeff Hameed MD [address] [facility] [address] [place] [address] Coronary Atherosclerosis of [place] Coronary Artery (Primary Dx) Social History Tobacco Use Types Packs/Day Years Used Date Smoking Tobacco: Never Assessed Sex and Gender Information Value Date Recorded Sex Assigned at Not on file Legal Sex Male 5:07 AM ACCOUNTING CONSULTANT Gender Identity Not on file Sexual Orientation Not on file documented as of this encounter Plan of Treatment Upcoming Encounters Date Type Department Care Team (Late st Contact Info) Description 07/20/2025 8:45 AM ACCOUNTING CONSULTANT Office Visit [facility] Oncology and Hematology - [place] [address] [facility] [address] [place] [address] Tad Hemphill MD [address] [facility] [address] [place] [address] documented as of this encounter Visit Diagnoses Diagnosis Coronary atherosclerosis of [place] coronary artery- Primary documented in this encounter Care Teams Dog Breeder Relationship Specialty Start Date End Date Génesis Tran MD [address] [place] [address] PCP - General Family Practice 6/8/23 documented as of this encounter
--- OUTSIDE RECORDS SUMMARY | 2024-12-20 07:47 | XMS_ITS | Referral Summary ---
Author Organization [facility] [address] Address [address] [place] [address] Care Team Providers Care Plastic Bubble Packer Name Role Phone Génesis Tran MD Primary Care Provider Allergies Active Allergy Reactions Criticality Noted Date Comments Prednisone Anxiety Low 08/26/2021 Medications aspirin 81 mg enteric coated tablet Take 1 tablet (81 mg total) by mouth daily 30 tablet 11 2 09/21/19 26 Active cyanocobalamin, vitamin B-12, 1,000 mcg lozenge DISSOLVE 1 TABLET BY MOUTH EVERY DAY 2 Active cholecalciferol (VITAMIN D-3) 2000 unit tablet Active fosinopriL (MONOPRIL) 20 mg tablet TAKE 1 TABLET(20 MG) BY MOUTH DAILY 90 tablet 5 Active hydroCHLOROthiazide (MICROZIDE) 12.5 mg capsuleIndications: Coronary atherosclerosis TAKE 1 CAPSULE(12.5 MG) BY MOUTH DAILY 90 capsule 5 Active atorvastatin (LIPITOR) 40 mg tablet TAKE 1 TABLET(40 MG) BY MOUTH DAILY 90 tablet 3 5 Active metoprolol XL (TOPROL-XL) 50 mg extended release tablet TAKE 1 TABLET(50 MG) BY MOUTH DAILY 90 tablet 3 5 Active Active Problems Problem Noted Date Diagnosed Date Morbid (severe) obesity due to excess calories 0 09/01/2022 Hx of CABG 08/18/2017 Coronary arteriosclerosis in [place] artery 06/18 Overview (11/13/2016): Coronary arteriosclerosis in [place] artery Social History Tobacco Use Types Packs/Day Years Used Date Smoking Tobacco: Former Cigarettes Q uit: 08/18/1978 Smokeless Tobacco: Never Tobacco Cessation:Counseling Given: Not Answered Alcohol Use Standard Drinks/Week Comments Yes 3 (1 standard drink = 0.6 oz pur e alcohol) Sex and Gender Information Value Date Recorded Sex Assigned at Not on file Legal Sex Male 3:49 PM JAVA MOBILE DEVELOPER Gender Identity Male 08/23/2021 9:11 AM JAVA MOBILE DEVELOPER Sexual Orientation Not on file Last Filed Vital Signs Vital Sign Reading Time Taken Comments Blood Pressure 130/82 09/21/2024 12:56 PM JAVA MOBILE DEVELOPER Pulse 82 09/21/2024 12:56 PM JAVA MOBILE DEVELOPER Temperature - - Respiratory Rate - - Oxygen Saturation 95% 09/21/2024 12:56 PM JAVA MOBILE DEVELOPER Inhaled Oxygen Concentration - - Weight 110.2 kg (243 lb) 09/21/2024 12:56 PM JAVA MOBILE DEVELOPER Height 172.7 cm (5' 8 ) 09/21/2024 12:56 PM JAVA MOBILE DEVELOPER Body Mass Index 36.95 09/21/2024 12:56 PM JAVA MOBILE DEVELOPER Plan of Treatment Not on file Insurance [facility] MEDICARE ADVANTAGE Care Teams Plastic Bubble Packer Relationship Specialty Start Date End Date Génesis Tran MD PCP - General Family Practice 08/18/17
--- OUTSIDE RECORDS SUMMARY | 2024-12-20 07:47 | XMS_ITS | Clinical Summary ---
Author Organization [facility] Address [address], [address] [address] Phone Care Team Providers Care Ingot Stripper Name Role Phone Génesis Tran MD Primary [...] Relevant to Health Maintenance Insurance [facility] Care Teams Ingot Stripper Relationship Specialty Start Date End Date Génesis Tran MD PCP - General Family Medicine 11/06/20
--- OUTSIDE RECORDS SUMMARY | 2024-12-20 07:47 | XMS_ITS | Clinical Summary ---
Author Organization [facility] Address [facility] [place] [address] Care Team Providers Care Networking Specialist Name Role Phone Unavailable Primary Care [...] Td Vaccines ( 1 - Tdap) 1969 Pneumococcal Vaccine: 50+ Ye ars (1 of 1 - PCV) 2000 Zoster Vaccines (1 of 2) 2000 COVID-19 Vaccine ( - 2023-2 5 season) [...]
--- OUTSIDE RECORDS SUMMARY | 2024-12-20 07:47 | XMS_ITS | Clinical Summary ---
Author Organization [facility] [address] Address [address] [place] [address] Care Team Providers Care Municipal Services Manager Name Role Phone Génesis Tran MD [...] Hx of CABG 08/18/2017 Coronary arteriosclerosis in [place] artery 06/18 Overview (11/13/2016): Coronary arteriosclerosis in [place] artery Surgical History Surgery Date Site/Laterality Comments CHOLECYSTECTOMY CORONARY ARTERY BYPASS GRAFT Medical History Medical History Date Comments Gastroesophageal reflux disease GERD Heart disease Hypertension Arthritis Family History Medical History Relation Name Comments Stroke Father Juan C Mcclain Cancer Maternal Grandfather Lauro Watson Stroke Maternal Grandmother Edwina Watson Stroke Paternal Grandfather Santo Mcclain Heart attack Sister 1 Flower Jimenez Stroke Sister 2 Fiordaliza Leal Relation Name Status Comments Father Juan C Mcclain Maternal Grandfather Lauro Watson Maternal Grandmother Edwina Watson Paternal Grandfather Santo Mcclain Sister 1 Flower Nelsonhnast Sister 2 Fiordaliza Leal Social History Tobacco Use Types Packs/Day Years Used Date Smoking Tobacco: Former Cigarettes Q uit: 08/18/1978 Smokeless Tobacco: Never Tobacco Cessation:Counseling Given: Not Answered Alcohol Use Standard Drinks/Week Comments Yes 3 (1 standard drink = 0.6 oz pur e alcohol) Sex and Gender Information Value Date Recorded Sex Assigned at Not on file Legal Sex Male 3:49 PM ABRASIVE WATER JET CUTTER OPERATOR Gender Identity Male 08/23/2021 9:11 AM ABRASIVE WATER JET CUTTER OPERATOR Sexual Orientation Not on file Obstetrics History Last Filed Vital Signs Vital Sign Reading Time Taken Comments Blood Pressure 130/82 09/21/2024 12:56 PM ABRASIVE WATER JET CUTTER OPERATOR Pulse 82 09/21/2024 12:56 PM ABRASIVE WATER JET CUTTER OPERATOR Temperature - - Respiratory Rate - - Oxygen Saturation 95% 09/21/2024 12:56 PM ABRASIVE WATER JET CUTTER OPERATOR Inhaled Oxygen Concentration - - Weight 110.2 kg (243 lb) 09/21/2024 12:56 PM ABRASIVE WATER JET CUTTER OPERATOR Height 172.7 cm (5' 8 ) 09/21/2024 12:56 PM ABRASIVE WATER JET CUTTER OPERATOR Body Mass Index 36.95 09/21/2024 12:56 PM ABRASIVE WATER JET CUTTER OPERATOR Plan of Treatment Health Maintenance Due Date [...] 2 - PPSV23) 05/30/2018 05/30/2017 Influenza Vaccine (Season Ended) 2025 05/23/2019, 05/04/2018, 08/09/2017, Additional history exists Insurance MEDICARE ADVANTAGE [facility] MEDICARE ADVANTAGE Care Teams Municipal Services Manager Relationship Specialty Start Date End Date Génesis Tran MD PCP - General Family Practice 08/18/17
--- OUTSIDE RECORDS SUMMARY | 2024-12-20 07:47 | XMS_ITS | Clinical Summary ---
Author Organization [facility] Offices Address [address] [place] [address] Care Team Providers Care Reducing Machine Operator Name Role Phone Génesis Tran MD Primary [...] Encounters Date Type Department Care Team Description 11/21/2024 External Device Data ST[place] ABSTRACTION Provider, Abstract [...] on file Legal Sex Male 5:07 AM TERRAZZO SUPERVISOR Gender Identity Not on file Sexual Orientation Not on file Last Filed Vital Signs Vital Sign Reading Time Taken Comments Blood Pressure 139/69 07/14/2024 8:38 AM TERRAZZO SUPERVISOR Pulse 70 07/14/2024 8:38 AM TERRAZZO SUPERVISOR Temperature 36.7 C (98 F) 07/14/2024 8:38 AM TERRAZZO SUPERVISOR Respiratory Rate 18 07/14/2024 8:38 AM TERRAZZO SUPERVISOR Oxygen Saturation 94% 07/14/2024 8:38 AM TERRAZZO SUPERVISOR Inhaled Oxygen Concentration - - Weight 108.9 kg (240 lb) 07/14/2024 8:38 AM TERRAZZO SUPERVISOR Height - - Body Mass Index - - Plan of Treatment Upcoming Encounters Date Type Department Care Team (Late st Contact Info) Description 07/20/2025 8:45 AM TERRAZZO SUPERVISOR Office Visit [facility] Oncology and Hematology [facility] [address] [facility] [address] [place] [address] Tad Hemphill MD [address] [facility] [address] [place] [address] Health Maintenance Due Date Last [...] Colorectal Cancer Screening 01/09/2031 Insurance Care Teams Reducing Machine Operator Relationship Specialty Start Date End Date Génesis Tran MD [address] [place] [address] PCP - General Family Practice 01/14/23
[2024-12-20 09:13] LABS: Add Urine Microscopic? NO; Appearance Urine Clear (Clear); Bilirubin Urine Negative (Negative); Blood Urine Negative (Negative); Color Urine Yellow (Yellow); Glucose Urine UA Negative (Negative); Ketones Urine Negative (Negative); Leukocyte Esterase Ur Negative LEU/UL (Negative); Nitrate Urine Negative (Negative); Protein Urine Negative (Negative); Specific Grav Ur 1.018 (1.001-1.035); Urobilinogen Urine 0.2 mg/dL (<2.0)
[2024-12-20 09:19] LABS: Anion Gap 4 mmol/L (4-12); Blood Urea Nitrogen 16 mg/dL (9-20); Calcium 9.1 mg/dL (8.4-10.2); Carbon Dioxide 33 mmol/L (22-30); Chloride 102 mmol/L (98-107); Estimated Glomerular Filt Rate > 60; Glucose 103 mg/dL (65-110); Potassium 4.4 mmol/L (3.4-5.0); Sodium 139 mmol/L (137-145)
[2024-12-20 09:22] LABS: INR 1.1; Partial Thromboplastin Time 28.3 Seconds (22.3-36.8); Prothrombin Time 14.2 Seconds (11.1-14.7)
[2024-12-20 09:46] LABS: Urine Cotinine NEGATIVE
[2024-12-20 10:19] LABS: MRSA (PCR) NOT DETECTED (NOT DETECTE)
== END 2024-12-20 07:42 | disposition home or self-care (01) ==
PROVIDERS: PCP Family Medicine; Visit Provider Orthopaedic Surgery
DX: Z01.812 Encounter for preprocedural laboratory examination (principal); M17.12 Unilateral primary osteoarthritis, left knee
CPT/HCPCS: 80048; 80307; 81003; 82040; 83036; 85610; 85730; 87641

== ENCOUNTER 2025-01-10 00:09 | Day surgery (SDC) | payer MEDICARE, SELFPAY ==
[2024-12-20 07:49] VITALS: BMI 35.4
--- NOTE | 2024-12-20 07:53 | PC.NURSE ---
Report to the Outpatient Waiting Room, entrance under the green pavilion located off [facility], at time _8:30AM on date _01/10/25 . Planned Procedure Time: 10:30 AM .? Time changes happen often and if your time is changed the preop area will call you the afternoon before. - You and your visitor will be asked to self-screen and do not enter if you have any COVID symptoms. Please call surgeon if you need to reschedule. - A mask is optional within the hospital at this time. Patients may have clear liquids (water, carbonated beverages, clear teas, apple juice) until 3 hours prior to surgery ( 7:30 AM) with a maximum of 20 ounces. - No food from midnight until time of surgery and no smoking, or chewing tobacco (or any form of nicotine). No chewing gum, candy or mints. TOTAL JOINT CLASS 12/27/24 AT 10 AM Take only the following medications with a SIP of water on the morning of surgery: METOPROLOL DO NOT STOP ANY OF YOUR OTHER PRESCRIPTION MEDICATIONS PRIOR TO SURGERY EXCEPT THE FOLLOWING Hold all vitamins and supplements for 3 days per anesthesiologist.LAST DOSE 01/06/25 Medications to discontinue per physician ASPIRIN PER DR URBAN ( APPOINTMENT 12/21/[address] URBAN) Please no make-up, nail welsh, hairspray, perfume, deodorant, or body powder the day of surgery.? No jewelry (including any body piercings) or valuables the day of surgery, leave them at home.? Please take a shower or bath the night before, or the morning of, surgery with an antibacterial soap.? Wear comfortable, loose fitting clothing.? Children are encouraged to wear pajamas. - Jewelry must be removed prior to entering the operating room.? Rings and piercings that are not removed may be cut off. - The hospital will not accept responsibility for valuables.? - Please leave all valuables, including medications, at home the day of surgery. If you are going home after surgery, a licensed [employer] company driver must drive you home.? - NO public transportation without another adult if you receive anesthesia. - We recommend that an adult stay with you for 24 hours following discharge. - We also recommend that you do not drive, make important decision, drink alcoholic beverages, or take any drugs that were not prescribed by your health care provider for at least 24 hours after your discharge time. VERBAL AND WRITTEN instructions given to __PATIENT AND ARA and asked if any additional questions and then verbalized understanding. Patient advised to call surgeon office or pre surgery nurse liaison [phone] if any additional questions.
[2024-12-20 08:42] VITALS: BP 133/70; PULSE 69; RESP 18; TEMP 36.7; O2SAT 97
[2025-01-10] VITALS (15 sets, daily range): BP systolic 118–157; BP diastolic 59–80; PULSE 66–87; RESP 10–20; TEMP 36.3–37.2; O2SAT 91–99; BMI 35.2
--- NOTE | ~2025-01-10 | XR_ITS ---
EXAMINATION: [id number] DATE: 01/10/2025 10:22 CDT INDICATION: Left knee arthroplasty TECHNIQUE: 2 views left knee FINDINGS: There is a left total knee arthroplasty in expected position. Subcutaneous gas with fluid and air in the joint are consistent with recent surgery. There is a sclerotic lesion of the distal as pect of the femoral diaphysis, most likely benign enchondroma versus bone infarct. No evidence of per iprosthetic fracture. IMPRESSION: 1. Recent left total knee arthroplasty. Reviewed, dictated and finalized at location A.
--- OUTSIDE RECORDS SUMMARY | 2025-01-10 00:12 | XMS_ITS | Clinical Summary ---
Author Organization [facility] [address] Address [address] [place] [address] Care Team Providers Care Manager Culinary Name Role Phone Génesis Tran MD Primary [...] Hx of CABG 08/18/2017 Coronary arteriosclerosis in [place] artery 06/18 Overview (11/13/2016): Coronary arteriosclerosis in [place] artery Surgical History Surgery Date Site/Laterality Comments [...] on file Legal Sex Male 3:49 PM VISUAL PRESENTATION MANAGER Gender Identity Male 08/23/2021 9:11 AM VISUAL PRESENTATION MANAGER Sexual Orientation Not on file Obstetrics History Last Filed Vital Signs Vital Sign Reading Time Taken Comments Blood Pressure 130/82 09/21/2024 12:56 PM VISUAL PRESENTATION MANAGER Pulse 82 09/21/2024 12:56 PM VISUAL PRESENTATION MANAGER Temperature - - Respiratory Rate - - Oxygen Saturation 95% 09/21/2024 12:56 PM VISUAL PRESENTATION MANAGER Inhaled Oxygen Concentration - - Weight 110.2 kg (243 lb) 09/21/2024 12:56 PM VISUAL PRESENTATION MANAGER Height 172.7 cm (5' 8) 09/21/2024 12:56 PM VISUAL PRESENTATION MANAGER Body Mass Index 36.95 09/21/2024 12:56 PM VISUAL PRESENTATION MANAGER Plan of Treatment Health Maintenance Due Date [...] 08/09/2017, Additional history exists Insurance MEDICARE ADVANTAGE [facility] MEDICARE ADVANTAGE Care Teams Manager Culinary Relationship Specialty Start Date End Date Génesis Tran MD PCP - General Family Practice 08/18/17
--- OUTSIDE RECORDS SUMMARY | 2025-01-10 00:12 | XMS_ITS | Encounter Summary ---
Author Organization [facility] Address [address] [place] [address] Care Team Providers Care Burling And Joining Supervisor Name Role Phone Génesis Tran MD Primary Care Provider Encounter Details Date Type Department Care Team (Latest Contact Info) Description 07/20/2006 Outpatient Historical HIS CARD SENIOR SHAREPOINT DEVELOPER Jeff Hameed MD [address] [facility] [address] [place] [address] Coronary Atherosclerosis of [place] Coronary Artery (Primary Dx) Social History Tobacco Use Types Packs/Day Years Used Date Smoking Tobacco: Never Assessed Sex and Gender Information Value Date Recorded Sex Assigned at Not on file Legal Sex Male 5:07 AM PHARMACEUTICAL SPECIALTY REPRESENTATIVE Gender Identity Not on file Sexual Orientation Not on file documented as of this encounter Plan of Treatment Upcoming Encounters Date Type Department Care Team (Late st Contact Info) Description 07/20/2025 8:45 AM PHARMACEUTICAL SPECIALTY REPRESENTATIVE Office Visit [facility] Oncology and Hematology - [place] [address] [facility] [address] [place] [address] Tad Hemphill MD [address] [facility] [address] [place] [address] documented as of this encounter Visit Diagnoses Diagnosis Coronary atherosclerosis of [place] coronary artery- Primary documented in this encounter Care Teams Burling And Joining Supervisor Relationship Specialty Start Date End Date Génesis Tran MD [address] [place] [address] PCP - General Family Practice 6/8/23 documented as of this encounter
--- OUTSIDE RECORDS SUMMARY | 2025-01-10 00:12 | XMS_ITS | Clinical Summary ---
Author Organization [facility] Administrative Offices Address [address] [place] [address] Care Team Providers Care Family Consultant Name Role Phone Génesis Tran MD Primary [...] Encounters Date Type Department Care Team Description 01/02/2025 External Device Data STL ABSTRACTION Provider, Abstract 12/28/2024 External Device Data STL ABSTRACTION Provider, Abstract 12/27/2024 External Device Data ST[place] ABSTRACTION Provider, Abstract 12/26/2024 External Device Data STL ABSTRACTION Provider, Abstract 11/21/2024 External Device Data STL ABSTRACTION Provider, [...] on file Legal Sex Male 5:07 AM WOOD DOWEL MACHINE OPERATOR Gender Identity Not on file Sexual Orientation Not on file Last Filed Vital Signs Vital Sign Reading Time Taken Comments Blood Pressure 139/69 07/14/2024 8:38 AM WOOD DOWEL MACHINE OPERATOR Pulse 70 07/14/2024 8:38 AM WOOD DOWEL MACHINE OPERATOR Temperature 36.7 C (98 F) 07/14/2024 8:38 AM WOOD DOWEL MACHINE OPERATOR Respiratory Rate 18 07/14/2024 8:38 AM WOOD DOWEL MACHINE OPERATOR Oxygen Saturation 94% 07/14/2024 8:38 AM WOOD DOWEL MACHINE OPERATOR Inhaled Oxygen Concentration - - Weight 108.9 kg (240 lb) 07/14/2024 8:38 AM WOOD DOWEL MACHINE OPERATOR Height - - Body Mass Index - - Plan of Treatment Upcoming Encounters Date Type Department Care Team (Late st Contact Info) Description 07/20/2025 8:45 AM WOOD DOWEL MACHINE OPERATOR Office Visit [facility] Oncology and Hematology [facility] [address] [place] [address] [facility] [address] [place] [address] Tad Hemphill MD [address] [facility] [address] [place] [address] Health Maintenance Due Date Last [...] Colorectal Cancer Screening 01/09/2031 Insurance Care Teams Family Consultant Relationship Specialty Start Date End Date Génesis Tran MD [address] [place] [address] PCP - General Family Practice 01/14/23
--- OUTSIDE RECORDS SUMMARY | 2025-01-10 00:12 | XMS_ITS | Clinical Summary ---
Author Organization [facility] Address [address], [address] [address] Phone Care Team Providers Care Journalist Name Role Phone Génesis Tran MD Primary [...] Relevant to Health Maintenance Insurance [facility] Care Teams Journalist Relationship Specialty Start Date End Date Génesis Tran MD PCP - General Family Medicine 11/06/20
--- OUTSIDE RECORDS SUMMARY | 2025-01-10 00:12 | XMS_ITS | Referral Summary ---
Author Organization [facility] [address] Address [address] [place] [address] Care Team Providers Care Bank Vault Attendant Name Role Phone Génesis Tran MD Primary [...] Hx of CABG 08/18/2017 Coronary arteriosclerosis in [place] artery 06/18 Overview (11/13/2016): Coronary arteriosclerosis in [place] artery Social History Tobacco Use Types Packs/Day Years Used Date Smoking Tobacco: Former Cigarettes Q uit: 08/18/1978 Smokeless Tobacco: Never Tobacco Cessation:Counseling Given: Not Answered Alcohol Use Standard Drinks/Week Comments Yes 3 (1 standard drink = 0.6 oz pur e alcohol) Sex and Gender Information Value Date Recorded Sex Assigned at Not on file Legal Sex Male 3:49 PM PATTERNMAKER BENCH Gender Identity Male 08/23/2021 9:11 AM PATTERNMAKER BENCH Sexual Orientation Not on file Last Filed Vital Signs Vital Sign Reading Time Taken Comments Blood Pressure 130/82 09/21/2024 12:56 PM PATTERNMAKER BENCH Pulse 82 09/21/2024 12:56 PM PATTERNMAKER BENCH Temperature - - Respiratory Rate - - Oxygen Saturation 95% 09/21/2024 12:56 PM PATTERNMAKER BENCH Inhaled Oxygen Concentration - - Weight 110.2 kg (243 lb) 09/21/2024 12:56 PM PATTERNMAKER BENCH Height 172.7 cm (5' 8) 09/21/2024 12:56 PM PATTERNMAKER BENCH Body Mass Index 36.95 09/21/2024 12:56 PM PATTERNMAKER BENCH Plan of Treatment Not on file Insurance [facility] MEDICARE ADVANTAGE Care Teams Bank Vault Attendant Relationship Specialty Start Date End Date Génesis Tran MD PCP - General Family Practice 08/18/17
[2025-01-10] MEDS: LACTATED RINGERS 1,000 ML 30 ML IV CONT (06:35)
[2025-01-10] MEDS: ACETAMINOPHEN 500 MG TABLET 1000 MG PO (06:40)
--- NOTE | 2025-01-10 06:57 | WPDANESEPPF ---
Anes - Initial Pre Proc Eval Procedure: Operation Date: 01/10/25 07:30 Proposed Procedures p Left Total Knee Arthroplasty - Cuhy Sanchez MD Date/Time: 01/10/25 06:57 Surgeon: Chuy Sanchez MD Pre Op Diagnosis: left knee DJD Patient Data Age: 74 Gender: M Height: 1.73 m Weight: 105.9 kg Last Vital Signs Temp 98.1 F 12/20/24 08:42 Pulse 69 12/20/24 08:42 Resp 18 12/20/24 08:42 BP 133/70 12/20/24 08:42 Pulse Ox 97 12/20/24 08:42 O2 Del Method Room Air 12/20/24 08:42 Allergies Allergy/AdvReac Type Severity Reaction Status Date / Time prednisolone AdvReac Unknown Agitated Verified 12/21/24 09:05 AND CONFUSION Home Medications ?Medication ?Instructions ?Recorded ?Confirmed ?Type hydrochlorothiazide 12.5 mg capsule 12.5 mg PO QAM 06/29/19 12/21/24 History metoprolol succinate 50 mg 50 mg PO QAM 06/29/19 12/21/24 History tablet,extended release 24 hr fosinopril 20 mg tablet 20 mg PO QAM 07/12/19 12/21/24 History aspirin 81 mg capsule 81 mg PO DAILY 12/22/21 12/21/24 History cholecalciferol (vitamin D3) 50 50 mcg PO DAILY 06/29/22 12/21/24 History mcg (2,000 unit) tablet cyanocobalamin (vitamin B-12) 1,000 mcg sublingual DAILY #90 tabs 06/30/22 12/21/24 Rx 1,000 mcg sublingual tablet atorvastatin 40 mg tablet 40 mg PO QHS 12/28/22 12/21/24 History chlorhexidine gluconate 4 % 1 applic topical DAILY #237 mL 12/29/24 Rx topical liquid (Hibiclens) Laboratory Tests 01/10/25 06:18 Blood Type Pending Antibody Screen Pending Patient hx anesthesia problems: none Family hx anesthesia problems: none Results Review: All pre-operative results and documents have been reviewed as part of the pre-operative evaluation. [facility] Past Medical History Medical History Lichen simplex chronicus right diaz GERD without esophagitis Leg length discrepancy Right 0.5 shorter Vitamin B12 deficiency Vitamin D deficiency Left knee DJD Ventral hernia without obstruction or gangrene Obesity Eczema of lower leg Prediabetes CAD (coronary artery disease) Essential (primary) hypertension Gastritis Surgical History Surgical History History of laparoscopy (~2020) 03/2021 - Left knee medial and lateral meniscus repair History of cholecystectomy 06/2010 Hx of coronary artery bypass graft 05/2009 and 1985 Family History Family History Father Heart disease Father Family history of cardiovascular disease Other Cerebrovascular accident Hypertension Social History Social History Smoking packs per day: 1 Smoking cigarettes per day: 20.0 Years smoked: 5 Smoking pack-years: 5.00 Smoking status: Former smoker Tobacco type: cigarettes Second hand tobacco smoke exposure: No Smoking end date: 08/09/70 Additional smoking assessment comments: DENIES ANY FORM OF TOBACCO USE Alcohol intake: current Drinks per week: 1 Alcohol use details: BEER Substance use: never Substance use type: does not use Lack of Transportation: No Lack of Food: Never True Current Housing: I Have Housing Concerned About Future Housing: No Difficulty Paying Gas/Electric Bills: No Difficulty Paying for Meds: No Currently Unemployed: No Education: High School Diploma/GED Difficulty w/ Childcare or Family Care: No Living arrangements: with family Additional living arrangements comments: Gender identity (if verbalized by the patient): Male Spiritual care concerns: No Anes - Eval Final PreProcedure Day of Procedure 01/10/25 06:57 Patient weight: obese Lungs: normal air movement Airway: Mallampati scale class II and special considerations (Missing several in the post aspect. None loose. ) Neurological: alert and oriented Last oral intake: >/= 8 hours ASA classification: III Emergent: no Anesthetic plan: proceed Anesthesia type and monitoring: general LMA and standard monitoring Results Review: All pre-operative results and documents have been reviewed as part of the pre-operative evaluation. HTN, hyperlipidemia, ex smoker quit , hx CABG 1985 and [address] Pt [address] Dr Hameed yearly, eval completed and cleared for this surgery by cardio. Informed Consent: The patient's anesthetic plan and its attendant risks and benefits were discussed with the patient/family/POA. Questions were solicited and answers provided to the satisfaction of the patient/family/POA.
[2025-01-10] MEDS: TRANEXAMIC ACID 1,000MG/ISO100 1,000 MG/100 ML BAG 200 MG IVPB (07:15)
--- NOTE | 2025-01-10 07:15 | WPDHPUPDATE1 ---
History and Physical Update Update Date/Time: 01/10/25 07:15 History and Physical has been reviewed, including an updated exam of the patient. There are NO changes in the patient's condition. Risks, benefits, and alternatives have been discussed and questions answered. Patient agrees to proceed with procedure.
[2025-01-10] MEDS: ceFAZolin 2 GM/D5W 50 ML 2 GM/50 ML BAG IVPB ×3 (07:29→23:54)
--- NOTE | 2025-01-10 07:30 | WPDANESPNB ---
Anes - Peripheral Nerve Block Date/Time: 01/10/25 07:30 I have discussed with the patient/family/POA the placement of a peripheral nerve block for post-operative pain management, including associated risks, benefits, complications, and side effects. Alternative methods of post-operative analgesia were detailed. Questions were solicited and answers provided to the satisfaction of the patient/family/POA. Time-Out: A pre-procedural Time-Out was completed immediately before starting the procedure and confirmed: Patient Identification, Site, Procedure, Patient Position and the Availability of Requisite Equipment. Clinical Indications: Acute post-operative pain management requested by the operative surgeon. Nerve Block Insertion Note Anes-nerve block: adductor canal left Patient position: supine Skin prep: chlorhexidine Needle: 22 gauge, stimulating, insulated echogenic needle. Needle length: 80 mm Technique: ultrasound Injectate: other (Bupiv 0.5% 15 mls. ) Observations: tolerated well Complications: none Procedure start time:: 722 Procedure end time::
[2025-01-10] MEDS: SODIUM CHLORIDE 0.9% IV 37.7 ML, MORPHINE SULFATE INJ (*CRX) 2 MG, ROPivacaine HCL 1% 2... INFILTRATE (08:34)
[2025-01-10] MEDS: TRANEXAMIC ACID 1,000 MG/10 ML AMPUL 1000 MG IV PUSH (09:03)
--- NOTE | 2025-01-10 09:12 | SUR.OPER ---
EBL 150
--- NOTE | 2025-01-10 09:26 | W.PM.PROC2 ---
Procedure Note - Detailed Date of Procedure 01/10/25 Pre-op Diagnosis left knee DJD Post-op Diagnosis Same Procedure Performed L TKA Surgeon Chuy Sanchez MD Anesthesia General Description of Procedure THE LEFT KNEE WAS PREPPED AND DRAPED IN THE STERILE FASHION. A MIDLINE SKIN INCISION WAS MADE. A MEDIAL PARAPATELLAR ARTHROTOMY WAS MADE. THE PATELLA WAS EVERTED. THERE WAS TRICOMPARTMENT DJD. THERE WAS MINIMAL PATELLA DJD. AN INTRAMEDULLARY YASMIN WAS PLACED IN THE FEMUR. A DISTAL FEMORAL CUT WAS MADE IN 5 DEGREES OF VALGUS REMOVING APPROXIMATELY 11 MM OF BONE FROM THE DISTAL FEMUR. THE FEMUR WAS SIZED TO 67.5. A 67.5 FEMORAL CUTTING BLOCK WAS PLACED IN 3 DEGREES OF EXTERNAL ROTATION AND IN ALIGNMENT WITH JAC'S LINE AND THE TRANSEPICONDYLAR AXIS. ANTERIOR POSTERIOR AND CHAMFER CUTS WERE MADE. THE CUTS WERE EXCELLENT. NEXT AN INTRAMEDULLARY CUTTING GUIDE WAS PLACED IN THE TIBIA. A TRANS TIBIAL CUT WAS MADE ALONG THE LONG AXIS OF THE TIBIA. APPROXIMATELY 10 MM OF BONE WAS REMOVED FROM THE HIGH SIDE OF THE TIBIA. THE TIBIA WAS THEN PLANED TO A SMOOTH SURFACE. POSTERIOR FEMORAL OSTEOPHYTES WERE REMOVED FROM THE FEMORAL CONDYLES. A 75 TIBIAL TRIAL WAS PLACED IN ALIGNMENT WITH THE 1/3 MEDIAL ASPECT OF THE TIBIAL TUBERCLE. THEN A 67.5 FEMORAL TRIAL COMPONENT WAS PLACED. BOTH HAD EXCELLENT FITS. EVENTUALLY A 12 MM POLYETHYLENE TRIAL COMPONENT WAS PLACED. THE KNEE WAS TAKEN THROUGH A RANGE OF MOTION. THE KNEE CAME OUT TO FULL EXTENSION. THERE WAS NO ABNORMAL TILT TO THE PATELLA. THERE WAS GOOD A/P AND VARUS/VALGUS STABILITY. THERE WAS NO EXCESSIVE ROLL BACK WITH FLEXION. THE TRIAL COMPONENTS WERE REMOVED. THEN A 67.5 FEMORAL COMPONENT AND 75 TIBIAL COMPONENT WITH A 12 POLYETHYLENE COMPONENT WERE CEMENTED INTO PLACE. ONCE THE CEMENT WAS HARD THE KNEE WAS TAKEN THROUGH A ROM AGAIN AND FOUND TO BE STABLE WITH NO PATELLA TILT NO EXCESSIVE ROLL BACK WITH FLEXION AND GOOD STABILITY WITH COMPLETE AND FULL EXTENSION. THE KNEE WAS IRRIGATED WITH STERILE BETADINE AND WATER FOR ABOUT 3 MINUTES. THE BLEEDERS WERE CAUTERIZED. THE ARTHROTOMY WAS REPAIRED WITH NUMBER 1 VICRYL. THE SUB CUTANEOUS LAYER WITH 2-0 VICRYL AND THE SKIN WITH 3-0 QUIL AND DERMABOND. THE WOUND WAS WASHED AND A STERILE DRESSING WAS APPLIED. PATIENT WAS EXTUBATED. Estimated Blood Loss -150.0 Pathology None sent Complications No immediate complications Condition Stable Disposition PACU
[2025-01-10] MEDS: fentaNYL CITRATE INJ (*CRX) 100 MCG/2 ML VIAL 25 MCG IV PUSH (10:29)
--- NOTE | 2025-01-10 11:06 | SUR.PHASEI ---
1102: RN tried to give report and floor RN has to call back.
--- NOTE | 2025-01-10 11:40 | ADMGEN ---
This patient, Lauro Stratton, was admitted to [facility] Surg Room 303-01. Patient/family oriented to hospital policies and general routines including ID bracelet, bed and alarms, visiting hours, pain management, procedures, bathroom and other care routines, personal items, smoking policy, room service/diet, and visiting hours. Information on how to activate the Rapid Response Team has been discussed. Patient/Family are encouraged to report perceived risks to care and to ask questions if they do not understand what they are told or what they should do.
[2025-01-10] MEDS: SENNA/DOCUSATE SODIUM TABLET 2 TAB PO ×2 (12:26→16:13)
[2025-01-10] MEDS: hydroCHLOROthiazide 12.5 MG CAPSULE PO (12:27)
[2025-01-10] MEDS: SODIUM CHLORIDE 0.9% IV 1,000 ML 125 ML IV CONT (12:27)
[2025-01-10] MEDS: ASPIRIN 325 MG ENTERIC TABLET PO ×2 (12:27→21:15)
[2025-01-10] MEDS: FAMOTIDINE 20 MG TABLET PO ×2 (12:27→21:14)
[2025-01-10] MEDS: CHOLECALCIFEROL (VITAMIN D3) 25 MCG (1,000 UNITS) TABLET 50 MCG PO (12:27)
[2025-01-10] MEDS: polyethylene glycoL 3350 17 GM POWD.PACK PO (12:27)
[2025-01-10] MEDS: CELECOXIB 200 MG CAPSULE PO ×2 (12:27→16:13)
[2025-01-10] MEDS: ONDANSETRON INJ 4 MG/2 ML VIAL IV PUSH (17:06)
[2025-01-10] MEDS: ATORVASTATIN 40 MG TABLET PO (21:15)
[2025-01-10] MEDS: oxyCODONE/ACETAMINOPHEN (*CRX) 10-325 MG TABLET 1 TAB PO (23:41)
[2025-01-11 00:04] VITALS: BP 128/61; PULSE 64; RESP 20; TEMP 36.4; O2SAT 96
[2025-01-11 05:09] VITALS: BP 144/77; PULSE 97; RESP 16; TEMP 36.8; O2SAT 99
[2025-01-11] MEDS: oxyCODONE/ACETAMINOPHEN (*CRX) 10-325 MG TABLET 1 TAB PO (06:18)
[2025-01-11 06:35] LABS: Basophils Percent Auto 0.5 % (0.2-1.2); Eosinophils Absolute Auto 0.3 K/mm3 (0-0.3); Eosinophils Percent Auto 4.4 % (0-4.4); Hematocrit 37.4 % (42.0-52.0); Immature Granulocyte Absolute 0.02 K/mm3 (0.00-0.031); Immature Granulocyte Percent A 0.3 % (0-0.5); Lymphocytes Absolute Auto 0.87 K/mm3 (0.9-3.2); Lymphocytes Percent Auto 11.6 % (18.3-44.2); Mean Corpuscular HGB Conc 32.1 g/dl (32-36); Mean Corpuscular Hemoglobin 30.3 pg (26-34); Mean Corpuscular Volume 94.4 fl (80-100); Mean Platelet Volume 11.5 fl (7.4-10.4); Monocytes Absolute Auto 1.1 K/mm3 (0.1-0.6); Monocytes Percent Auto 15.1 % (2.6-8.5); Neutrophils Absolute Auto 5.1 K/mm3 (1.3-6.7); Neutrophils Percent Auto 68.1 % (45.5-73.1); Platelet Count Result 198 k/mm3 (150-375); Red Blood Count 3.96 M/mm3 (4.6-6.20); Red Cell Distribution Width 13.3 % (11.5-14.5); White Blood Count 7.5 K/mm3 (4.5-10.0)
[2025-01-11 06:47] LABS: Anion Gap 4 mmol/L (4-12); Blood Urea Nitrogen 12 mg/dL (9-20); Calcium 8.7 mg/dL (8.4-10.2); Carbon Dioxide 31 mmol/L (22-30); Chloride 102 mmol/L (98-107); Estimated CRCL calculation 100 ml/min; Estimated Glomerular Filt Rate > 60; Glucose 107 mg/dL (65-110); Potassium 3.7 mmol/L (3.4-5.0); Sodium 137 mmol/L (137-145)
[2025-01-11 08:01] VITALS: BP 119/77; PULSE 62; RESP 18; TEMP 36.6; O2SAT 95
[2025-01-11] MEDS: FAMOTIDINE 20 MG TABLET PO (09:02)
[2025-01-11] MEDS: CHOLECALCIFEROL (VITAMIN D3) 25 MCG (1,000 UNITS) TABLET 50 MCG PO (09:02)
[2025-01-11] MEDS: ceFAZolin 2 GM/D5W 50 ML 2 GM/50 ML BAG IVPB (09:02)
[2025-01-11] MEDS: polyethylene glycoL 3350 17 GM POWD.PACK PO (09:02)
[2025-01-11] MEDS: hydroCHLOROthiazide 12.5 MG CAPSULE PO (09:02)
[2025-01-11] MEDS: ASPIRIN 325 MG ENTERIC TABLET PO (09:02)
[2025-01-11] MEDS: SENNA/DOCUSATE SODIUM TABLET 2 TAB PO (09:02)
[2025-01-11] MEDS: CELECOXIB 200 MG CAPSULE PO (09:02)
[2025-01-11] MEDS: lisinopriL 20 MG TABLET PO (09:02)
[2025-01-11] MEDS: METOPROLOL SUCCINATE EXT REL 50 MG TABCR PO (09:02)
--- NOTE | 2025-01-11 10:20 | P.PNAN_ITS ---
Anes - Prog Note Post-Op Date/Time: 01/11/25 10:20 Cardiovascular status: normal Respiratory status: normal Airway patency: baseline Mental status: baseline Post-Op hydration status: normal Vital Signs: Last Vital Signs Temp 97.9 F 01/11/25 08:01 Pulse 62 01/11/25 08:01 Resp 18 01/11/25 08:01 BP 119/77 01/11/25 08:01 Pulse Ox 95 01/11/25 08:01 O2 Del Method Room Air 01/10/25 23:56 O2 Flow Rate 2 01/10/25 11:15 Pain Score (VAS): 0/10 I/O: Intake & Output 01/10/25 01/11/25 01/11/25 23:59 07:59 15:59 Intake Total 530 50 Balance 530 50 Laboratory Tests 01/11/25 05:35 01/11/25 05:35 01/11/25 05:35 WBC 7.5 RBC 3.96 L Hgb 12.0 L D Hct 37.4 L MCV 94.4 MCH 30.3 MCHC 32.1 RDW 13.3 Plt Count 198 MPV 11.5 H Immature Gran % (Auto) 0.3 Neut % (Auto) 68.1 Lymph % (Auto) 11.6 L [place] % (Auto) 15.1 H Eos % (Auto) 4.4 Baso % (Auto) 0.5 Lymph # (Auto) 0.87 L [place] # (Auto) 1.1 H Eos # (Auto) 0.3 Baso # (Auto) 0.0 Abs Immat Gran (auto) 0.02 Absolute Neuts (auto) 5.1 Absolute Nucleated RBC 0.000 Nucleated RBC % 0.0 Sodium 137 Potassium 3.7 Chloride 102 Carbon Dioxide 31 H Anion Gap 4 BUN 12 Creatinine 0.65 L Estim Creat Clear Calc 100 Estimated GFR > 60 Glucose 107 Calcium 8.7 Post-procedural complaints: none Patient Feedback: Patient satisfied with anesthetic care.
[2025-01-11 12:05] VITALS: BP 123/56; PULSE 64; RESP 18; TEMP 36.1; O2SAT 97
--- NOTE | 2025-01-11 12:52 | PM.PNORT ---
Progress Note: A&P Assessment and Plan (1) S/P total knee arthroplasty: Qualifiers: Laterality: left Qualified Code(s): Z96.652 - Presence of left artificial knee joint Code(s): Z96.659 - Presence of unspecified artificial knee joint Status: Acute Assessment and Plan: POD #1: Left TKA Continue PT/OT. WBAT. Walker. HIGH FALL RISK. Continue pain control. Ice Knee. Protect skin. DVT prophylaxis with Aspirin. SCDs. Incentive Spirometry Use reviewed. Monitor Dressing. Change prior to discharge. Bowel Regimen. Dispo: Home with Home Health pending progress with PT/OT Plan Reviewed history, exam, radiographs and current labs with attending MD and covering surgeon, Dr. Sanchez, who agrees with current plan as indicated above. No further recommendations from Dr. Sanchez at this time. Time Spent With Patient Time with patient: 15 - 25 minutes Subjective Subjective Date/Time Seen: 01/11/25 12:52 Post Op day: 1 Interval history: POD #1: Left TKA Patient doing well. Pain well controlled. Hopeful for d/c home today. Review of Systems Review of Systems: All systems reviewed & are unremarkable except as noted in HPI and below Constitutional: Constitutional: Denies fever(s) and Denies headache(s) ENT: Denies headache(s) Cardiovascular: Cardiovascular: Denies chest pain, Denies diaphoresis, Denies palpitations and Denies dyspnea Respiratory: Respiratory: Denies dyspnea Gastrointestinal: Gastrointestinal: Denies abdominal pain, Denies constipation, Denies nausea and Denies vomiting Genitourinary: Genitourinary: Denies dysuria and Reports nocturia Musculoskeletal: Musculoskeletal: Reports arthralgias (Left Knee ), Reports joint swelling (Left Knee ) and Reports limited range of motion (ROM limited due to recent surgical intervention LEFT Knee ) Neurologic: Denies headache(s) Endocrine: Endocrine: Denies palpitations Exam Const: General: comfortable and no acute distress Resp: Effort & Inspection: normal respiratory effort Cardio: Rate: regular rate Rhythm: regular rhythm GI: GI Palp: Yes Soft to palpation, No Tenderness to palpation present (GI) and No Guarding due to palpation present (GI) Skin: General skin exam: wounds noted (see extremity assessment ) Wounds: wounds noted (see extremity assessment ) Neuro: Cognition (Neuro): normal cognition Other: NV intact aside from block. Moves toes. Sensation intact to light touch. +ankle dorsiflexion/plantarflexion. Extrem: Left lower extremity: normal to inspection, normal capillary refill, knee Details: tenderness (diffuse ) Location: of the patella, swelling (moderate consistent to recent surgery ), abnormal ROM (limited due to recent surgery ) Details: pain with active ROM and pain with passive ROM and ecchymosis (as expected with recent surgery. NO hematoma. ), lower leg (Negative Barbara's Sign ), ankle (+ankle dorsiflexion/plantarflexion ) Details: normal to inspection, no edema and normal ROM; no tenderness and no swelling and foot Details: normal capillary refill, toes with normal ROM, vascular exam Details: dorsalis pedis pulse present and motor-sensory exam light-touch normal; no tenderness Other: Incision left TKA dressing c/d/i. No hematoma. No signs of infection. No wound dehiscence. Psych: Mental Status: mental status grossly normal Objective Data Vital Signs Vital Signs: Vital Signs - 24 hr 01/10/25 13:25 01/10/25 13:57 01/10/25 14:52 Temperature 36.7 C Pulse Rate 72 Respiratory Rate 16 Blood Pressure 133/64 Pulse Oximetry 96 Oxygen Delivery Room Air Room Air 01/10/25 17:25 01/10/25 21:00 01/10/25 21:04 Temperature 36.6 C 36.3 C L Pulse Rate 67 66 Respiratory Rate 16 20 Blood Pressure 121/59 L 118/61 Pulse Oximetry 97 94 Oxygen Delivery Room Air 01/10/25 23:56 01/11/25 00:04 01/11/25 05:09 Temperature 36.4 C 36.8 C Pulse Rate 64 97 Respiratory Rate 20 16 Blood Pressure 128/61 144/77 H Pulse Oximetry 96 99 Oxygen Delivery Room Air 01/11/25 08:01 01/11/25 12:05 Temperature 36.6 C 36.1 C L Pulse Rate 62 64 Respiratory Rate 18 18 Blood Pressure 119/77 123/56 L Pulse Oximetry 95 97 Oxygen Delivery Intake/Output Intake/Output: Intake & Output 01/08/25 01/09/25 01/10/25 01/11/25 23:59 23:59 23:59 23:59 Intake Total 1020 290 Balance 1020 290 Meds/Results Medications: Active Medications Generic Name Dose Route Start Last Admin Trade Name Freq PRN Reason Stop Dose Admin Acetaminophen 500 mg 01/10/25 11:24 Acetaminophen 500 Mg Tablet PO Q6H PRN Pain Rated 1-3 Aspirin 325 mg 01/10/25 11:24 01/11/25 09:02 Aspirin 325 Mg Enteric Tablet PO 325 mg Q12HR ERICK Administration Atorvastatin Calcium 40 mg 01/10/25 21:00 01/10/25 21:15 Atorvastatin 40 Mg Tablet PO 40 mg QHS ERICK Administration Celecoxib 200 mg 01/10/25 11:24 01/11/25 09:02 Celecoxib 200 Mg Capsule PO 200 mg BIDWM [facility] Administration Diazepam 5 mg 01/10/25 11:24 Diazepam (*Crx) 5 Mg Tablet PO Q8H PRN Spasms Diphenhydramine HCl 25 mg 01/10/25 11:24 Diphenhydramine Hcl Inj 50 Mg/Ml Vial IV PUSH Q6H PRN Itching Famotidine 20 mg 01/10/25 11:24 01/11/25 09:02 Famotidine 20 Mg Tablet PO 20 mg Q12HR ERICK Administration Hydrochlorothiazide 12.5 mg 01/10/25 11:24 01/11/25 09:02 Hydrochlorothiazide 12.5 Mg Capsule PO 12.5 mg QAM [facility] Administration Hydromorphone HCl 1 mg 01/10/25 12:19 Hydromorphone Hcl Inj (*Crx) 2 Mg/Ml Vial IV PUSH Q2H PRN Breakthrough Pain Rated 7-10 or NPO Hydromorphone HCl 0.5 mg 01/10/25 12:20 Hydromorphone Hcl Inj (*Crx) 2 Mg/Ml Vial IV PUSH Q2H PRN Breakthrough Pain Rated 4-6 or NPO Ibuprofen 800 mg in 200 mls @ 400 mls/hr 01/10/25 11:24 Caldolor 800 Mg/200 Ml IVPB Q6H PRN Breakthrough Pain Rated 1-3 or NPO Lisinopril 20 mg 01/11/25 09:00 01/11/25 09:02 Lisinopril 20 Mg Tablet PO 20 mg QAM [facility] Administration Metoprolol Succinate 50 mg 01/10/25 11:24 01/11/25 09:02 Metoprolol Succinate Ext Rel 50 Mg Tabcr PO 50 mg QAM [facility] Administration Naloxone HCl 0.1 mg 01/10/25 11:24 Naloxone Hcl 0.4 Mg/Ml Vial IV PUSH Q2M PRN Opiate Reversal Ondansetron HCl 4 mg 01/10/25 11:24 01/10/25 17:06 Ondansetron Inj 4 Mg/2 Ml Vial IV PUSH 4 mg Q4H PRN Administration Nausea And Vomiting Oxycodone/Acetaminophen 1 tablet 01/10/25 11:24 Oxycodone/Acetaminophen (*Crx) 5-325 Mg Tablet PO Q4H PRN Pain Rated 4-6 Oxycodone/Acetaminophen 1 tab 01/10/25 11:24 01/11/25 06:18 Oxycodone/Acetaminophen (*Crx) 10-325 Mg Tablet PO 1 tab Q6H PRN Administration Pain Rated 7-10 Polyethylene Glycol 17 gm 01/10/25 11:24 01/11/25 09:02 Polyethylene Glycol 3350 17 Gm Powd.Pack PO 17 gm QAM ERICK Administration Senna/Docusate Sodium 2 tab 01/10/25 11:24 01/11/25 09:02 Senna/Docusate Sodium Tablet PO 2 tab BID ERICK Administration Vitamin D 50 mcg 01/10/25 11:24 01/11/25 09:02 Cholecalciferol (Vitamin D3) 25 Mcg (1,000 Units) Tablet PO 50 mcg DAILY ERICK Administration Radiology Results: ITS Impressions Knee X-Ray 01/10/25 10:22 IMPRESSION: 1. Recent left total knee arthroplasty. Labs Labs: Laboratory Results - last 24 hr 01/11/25 05:35 WBC 7.5 RBC 3.96 L Hgb 12.0 L D Hct 37.4 L MCV 94.4 MCH 30.3 MCHC 32.1 RDW 13.3 Plt Count 198 MPV 11.5 H Immature Gran % (Auto) 0.3 Neut % (Auto) 68.1 Lymph % (Auto) 11.6 L [place] % (Auto) 15.1 H Eos % (Auto) 4.4 Baso % (Auto) 0.5 Lymph # (Auto) 0.87 L [place] # (Auto) 1.1 H Eos # (Auto) 0.3 Baso # (Auto) 0.0 Abs Immat Gran (auto) 0.02 Absolute Neuts (auto) 5.1 Absolute Nucleated RBC 0.000 Nucleated RBC % 0.0 Sodium 137 Potassium 3.7 Chloride 102 Carbon Dioxide 31 H Anion Gap 4 BUN 12 Creatinine 0.65 L Estim Creat Clear Calc 100 Estimated GFR > 60 Glucose 107 Calcium 8.7 Quality VTE Prophylaxis VTE prophylaxis: pharmacologic ordered
== END 2025-01-11 13:55 | disposition home health service (06) ==
LOC: ANHSURGERY 05:53 → ANH3MEDSUR 11:25
PROVIDERS: PCP Family Medicine; Visit Provider Orthopaedic Surgery
PROC: (CPT 27447; principal; 2025-01-10 07:30)
DX: M17.12 Unilateral primary osteoarthritis, left knee (principal); M25.762 Osteophyte, left knee; G89.18 Other acute postprocedural pain; E78.5 Hyperlipidemia, unspecified; I10 Essential (primary) hypertension; K21.9 Gastro-esophageal reflux disease without esophagitis; E53.8 Deficiency of other specified B group vitamins; E55.9 Vitamin D deficiency, unspecified; R73.03 Prediabetes; I25.10 Atherosclerotic heart disease of native coronary artery without angina pectoris; L28.0 Lichen simplex chronicus; Z79.82 Long term (current) use of aspirin; Z90.49 Acquired absence of other specified parts of digestive tract; Z95.5 Presence of coronary angioplasty implant and graft; Z95.1 Presence of aortocoronary bypass graft; Z87.891 Personal history of nicotine dependence; Z87.19 Personal history of other diseases of the digestive system; Z82.49 Family history of ischemic heart disease and other diseases of the circulatory system
CPT/HCPCS: 64447; 27447; 36415; 73560; 80048; 85025; 86850; 86900; 86901; 97110; 97116; 97161; 97165; 97530; 97535; A9270; C1713; C1776; J0171; J0690; J1171; J1885; J2003; J2250; J2270; J2405; J2704; J2795; J3010; J7030; J7120

== ENCOUNTER 2025-02-09 20:31 | Emergency (ER) | payer MEDICARE, SELFPAY ==
--- OUTSIDE RECORDS SUMMARY | 2025-02-09 20:33 | XMS_ITS | Referral Summary ---
Author Organization [facility] [address] Address [address] [place] [address] Care Team Providers Care Carton Making Machine Operator Name Role Phone Génesis Tran [...] Hx of CABG 08/18/2017 Coronary arteriosclerosis in [place] artery 06/18 Overview (11/13/2016): Coronary arteriosclerosis in [place] artery Social History Tobacco Use Types Packs/Day Years Used Date Smoking Tobacco: Former Cigarettes Q uit: 08/18/1978 Smokeless Tobacco: Never Tobacco Cessation:Counseling Given: Not Answered Alcohol Use Standard Drinks/Week Comments Yes 3 (1 standard drink = 0.6 oz pur e alcohol) Sex and Gender Information Value Date Recorded Sex Assigned at Not on file Legal Sex Male 3:49 PM [place] Gender Identity Male 08/23/2021 9:11 AM [place] Sexual Orientation Not on file Last Filed Vital Signs Vital Sign Reading Time Taken Comments Blood Pressure 130/82 09/21/2024 12:56 PM [place] Pulse 82 09/21/2024 12:56 PM [place] Temperature - - Respiratory Rate - - Oxygen Saturation 95% 09/21/2024 12:56 PM [place] Inhaled Oxygen Concentration - - Weight 110.2 kg (243 lb) 09/21/2024 12:56 PM [place] Height 172.7 cm (5' 8) 09/21/2024 12:56 PM [place] Body Mass Index 36.95 09/21/2024 12:56 PM [place] Plan of Treatment Not on file Insurance [facility] Address: [address] [address] [place] [address] [facility] [place] [address] Care Teams Carton Making Machine Operator Relationship Specialty Start Date End Date Génesis Tran MD PCP - General Family Practice 08/18/17
--- OUTSIDE RECORDS SUMMARY | 2025-02-09 20:33 | XMS_ITS | Clinical Summary ---
Author Organization [facility] Address [address], [address] [address] Phone Care Team Providers Care Denture Technician Name Role Phone Génesis Tran MD [...] Colonoscopy 01/09/2031 01/09/2021 Colorectal Cancer Screening 01/09/2031 Hepatitis B Immunization Aged Out No longer [...] Relevant to Health Maintenance Insurance MEDICARE C [employer] [facility] Care Teams Denture Technician Relationship Specialty Start Date End Date Génesis Tran MD PCP - General Family Medicine 11/06/20
--- OUTSIDE RECORDS SUMMARY | 2025-02-09 20:33 | XMS_ITS | Clinical Summary ---
Author Organization [facility] [address] Address [address] [place] [address] Care Team Providers Care Research Laboratory Manager Name Role Phone Génesis Tran MD [...] Hx of CABG 08/18/2017 Coronary arteriosclerosis in [place] artery 06/18 Overview (11/13/2016): Coronary arteriosclerosis in [place] artery Surgical History Surgery Date Site/Laterality Comments [...] on file Legal Sex Male 3:49 PM MEDICAL RECORD ADMINISTRATOR Gender Identity Male 08/23/2021 9:11 AM MEDICAL RECORD ADMINISTRATOR Sexual Orientation Not on file Obstetrics History Last Filed Vital Signs Vital Sign Reading Time Taken Comments Blood Pressure 130/82 09/21/2024 12:56 PM MEDICAL RECORD ADMINISTRATOR Pulse 82 09/21/2024 12:56 PM MEDICAL RECORD ADMINISTRATOR Temperature - - Respiratory Rate - - Oxygen Saturation 95% 09/21/2024 12:56 PM MEDICAL RECORD ADMINISTRATOR Inhaled Oxygen Concentration - - Weight 110.2 kg (243 lb) 09/21/2024 12:56 PM MEDICAL RECORD ADMINISTRATOR Height 172.7 cm (5' 8) 09/21/2024 12:56 PM MEDICAL RECORD ADMINISTRATOR Body Mass Index 36.95 09/21/2024 12:56 PM MEDICAL RECORD ADMINISTRATOR Plan of Treatment Health Maintenance Due Date [...] 08/09/2017, Additional history exists Insurance MEDICARE ADVANTAGE [facility] MEDICARE ADVANTAGE Care Teams Research Laboratory Manager Relationship Specialty Start Date End Date Génesis Tran MD PCP - General Family Practice 08/18/17
--- OUTSIDE RECORDS SUMMARY | 2025-02-09 20:33 | XMS_ITS | Clinical Summary ---
Author Organization [facility] Address [facility] [place] [address] Care Team Providers Care Log Rafter Name Role Phone Unavailable Primary Care Provider [...]
--- OUTSIDE RECORDS SUMMARY | 2025-02-09 20:33 | XMS_ITS | Encounter Summary ---
Author Organization [facility] Address [address] [place] [address] Care Team Providers Care Parking Lot Spotter Name Role Phone Génesis Tran MD Primary Care Provider Encounter Details Date Type Department Care Team (Latest Contact Info) Description 07/20/2006 Outpatient Historical HIS CARD ORTHOPEDIC PHYSICAL THERAPIST Jeff Hameed MD [address] [facility] [address] [place] [address] Coronary Atherosclerosis of [place] Coronary Artery (Primary Dx) Social History Tobacco Use Types Packs/Day Years Used Date Smoking Tobacco: Never Assessed Sex and Gender Information Value Date Recorded Sex Assigned at Not on file Legal Sex Male 5:07 AM LANDSCAPE ARCHITECT Gender Identity Not on file Sexual Orientation Not on file documented as of this encounter Plan of Treatment Upcoming Encounters Date Type Department Care Team (Late st Contact Info) Description 07/20/2025 8:45 AM LANDSCAPE ARCHITECT Office Visit [facility] Oncology and Hematology - [place] [address] [facility] [address] [place] [address] Tad Hemphill MD [address] [facility] [address] [place] [address] documented as of this encounter Visit Diagnoses Diagnosis Coronary atherosclerosis of [place] coronary artery- Primary documented in this encounter Care Teams Parking Lot Spotter Relationship Specialty Start Date End Date Génesis Tran MD [address] [place] [address] PCP - General Family Practice 6/8/23 documented as of this encounter
--- OUTSIDE RECORDS SUMMARY | 2025-02-09 20:33 | XMS_ITS | Clinical Summary ---
Author Organization [facility] Administrative Offices Address [address] [place] [address] Care Team Providers Care Almond Grinder Name Role Phone Génesis Tran MD Primary [...] Encounters Date Type Department Care Team Description 01/23/2025 External Device Data STL ABSTRACTION Provider, Abstract 01/02/2025 External Device Data STL ABSTRACTION Provider, [...] on file Legal Sex Male 5:07 AM METAL FABRICATOR HELPER Gender Identity Not on file Sexual Orientation Not on file Last Filed Vital Signs Vital Sign Reading Time Taken Comments Blood Pressure 139/69 07/14/2024 8:38 AM METAL FABRICATOR HELPER Pulse 70 07/14/2024 8:38 AM METAL FABRICATOR HELPER Temperature 36.7 C (98 F) 07/14/2024 8:38 AM METAL FABRICATOR HELPER Respiratory Rate 18 07/14/2024 8:38 AM METAL FABRICATOR HELPER Oxygen Saturation 94% 07/14/2024 8:38 AM METAL FABRICATOR HELPER Inhaled Oxygen Concentration - - Weight 108.9 kg (240 lb) 07/14/2024 8:38 AM METAL FABRICATOR HELPER Height - - Body Mass Index - - Plan of Treatment Upcoming Encounters Date Type Department Care Team (Late st Contact Info) Description 07/20/2025 8:45 AM METAL FABRICATOR HELPER Office Visit [facility] Oncology and Hematology - [place] [address] [facility] [address] [place] [address] Tad Hemphill MD [address] [facility] [address] [place] [address] Health Maintenance Due Date Last [...] Colorectal Cancer Screening 01/09/2031 Insurance Care Teams Almond Grinder Relationship Specialty Start Date End Date Génesis Tran MD [address] [place] [address] PCP - General Family Practice 01/14/23
[2025-02-09 20:34] VITALS: BP 150/72; PULSE 78; RESP 18; TEMP 36.5; O2SAT 97
--- NOTE | 2025-02-09 20:56 | ED_ITS ---
HPI - Male Genitourinary General Chief complaint: Urogenital-Male Stated complaint: PAINFUL URINATION Time Seen by Provider: 02/09/25 20:53 Source: patient Mode of arrival: ambulatory Limitations: no limitations History of Present Illness HPI Narrative: This is a 74-year-old male that presents to the emergency department for dysuria. Ongoing since yesterday. No associated symptoms. Denies fevers, flank pain, vomiting, hematuria. Related Data Home Medications ?Medication ?Instructions ?Recorded ?Confirmed ?Last Taken ?Type hydrochlorothiazide 12.5 mg capsule 12.5 mg PO QAM 06/29/19 02/08/25 01/09/25 History metoprolol succinate 50 mg 50 mg PO QAM 06/29/19 02/08/25 01/10/25 History tablet,extended release 24 hr fosinopril 20 mg tablet 20 mg PO QAM 07/12/19 02/08/25 01/09/25 History aspirin 81 mg capsule 81 mg PO DAILY 12/22/21 02/08/25 01/03/25 History cholecalciferol (vitamin D3) 50 50 mcg PO DAILY 06/29/22 02/08/25 01/06/25 History mcg (2,000 unit) tablet atorvastatin 40 mg tablet 40 mg PO QHS 12/28/22 02/08/25 01/09/25 History Allergies Allergy/AdvReac Type Severity Reaction Status Date / Time prednisolone AdvReac Unknown Agitated Verified 02/09/25 21:31 AND CONFUSION Review of Systems Review of Systems: All systems reviewed & are unremarkable except as noted in HPI and below PMFSH Past Medical History Medical History (Updated 02/09/25 @ 22:01 by Tiana George PA-C) Lichen simplex chronicus right diaz GERD without esophagitis Leg length discrepancy Right 0.5 shorter Vitamin B12 deficiency Vitamin D deficiency Left knee DJD Ventral hernia without obstruction or gangrene Obesity Eczema of lower leg Prediabetes CAD (coronary artery disease) Essential (primary) hypertension Gastritis Surgical History Surgical History (Updated 02/08/25 @ 10:03 by Bernadette Suggs MA) S/P total knee arthroplasty LT TKA 01/10/25- Dr. Sanchez History of laparoscopy (~2020) 03/2021 - Left knee medial and lateral meniscus repair History of cholecystectomy 06/2010 Hx of coronary artery bypass graft 05/2009 and 1985 Family History Family History Father Heart disease Father Family history of cardiovascular disease Other Cerebrovascular accident Hypertension Social History Social History Smoking packs per day: 1 Smoking cigarettes per day: 20.0 Years smoked: 5 Smoking pack-years: 5.00 Smoking status: Former smoker Tobacco type: cigarettes Second hand tobacco smoke exposure: No Smoking end date: 08/09/70 Additional smoking assessment comments: DENIES ANY FORM OF TOBACCO USE Alcohol intake: never Drinks per week: 1 Alcohol use details: BEER Substance use: never Substance use type: does not use Do You Feel Safe in your Home?: Yes Lack of Transportation: No Lack of Food: Never True Current Housing: I Have Housing Concerned About Future Housing: No Difficulty Paying Gas/Electric Bills: No Difficulty Paying for Meds: No Currently Unemployed: No Education: Trade/Vocational Certificate Difficulty w/ Childcare or Family Care: No Living arrangements: with family Additional living arrangements comments: Gender identity (if verbalized by the patient): Male Spiritual care concerns: No Exam Narrative: GENERAL: Well-appearing, well-nourished, and in no acute distress. HEAD: Normocephalic, atraumatic. EYES: EOMI. CHEST: No respiratory distress. HEART: Regular rate and rhythm ABDOMEN: Soft, nontender, nondistended, normal active bowel sounds. No CVA tenderness EXTREMITIES: Normal range of motion. No edema. SKIN: Warm, dry, no rash. NEURO: No focal deficits. Alert and oriented x3. PSYCH: Normal mood and affect Course Vital Signs Vital signs: Vital Signs Temperature 97.7 F 02/09/25 20:34 Pulse Rate 78 02/09/25 20:34 Respiratory Rate 18 02/09/25 20:34 Blood Pressure 150/72 H 02/09/25 20:34 Pulse Oximetry 97 02/09/25 20:34 Oxygen Delivery Room Air 02/09/25 20:34 Temperature 97.7 F 02/09/25 20:34 Pulse Rate 77 02/09/25 21:33 Respiratory Rate 16 02/09/25 21:33 Blood Pressure 146/76 H 02/09/25 21:33 Pulse Oximetry 97 02/09/25 21:33 Oxygen Delivery Room Air 02/09/25 20:34 MDM - Male Genitourinary MDM Narrative Medical decision making narrative: Patient presents to the emergency department for dysuria. Ongoing since yesterday. He is afebrile and nontoxic appearing. His vitals are stable. Patient denies abdominal pain, nausea, vomiting. No CVA tenderness. Urine with evidence of infection. This will be sent for culture. Patient given a dose of cefdinir in the ER. Will be continued on this. He was given warnings to return to the ER Differential Diagnosis Differential diagnosis: Likely urinary tract infection Lab Data Labs: Lab Results 02/09/25 Range/Units 21:32 Urine Color Yellow (Yellow) Urine Appearance Turbid H (Clear) Urine pH 6.0 (5.0-9.0) Ur Specific [place] 1.014 (1.001-1.035) Urine Protein 3+ H (Negative) mg/dL Urine Glucose (UA) Negative (Negative) mg/dL Urine Ketones Trace H (Negative) mg/dL Ur Blood (Man) 3+ H (Negative) Urine Nitrate Negative (Negative) Urine Bilirubin Negative (Negative) Urine Urobilinogen 1.0 (<2.0) mg/dL Add Ur Microanalysis Reviewed Leukocyte Esterase Rfl 3+ H (Negative) SHANI/UL Urine RBC >100 H (0-2) /hpf Urine WBC >100 H (0-3) /hpf Ur Squamous Epith Cells Occasional (Few) /hpf Urine Bacteria 4+ H /hpf Urine Casts 3-5 Critical Care Time Critical Care Time Critical Care Time: No Discharge Plan Discharge Clinical Impression: Acute UTI Patient Disposition: Home Condition: Stable Instructions: Urinary Tract Infection in Men (ED) Additional Instructions: Return to the ER if you experience fever, abdominal pain with nausea and vomiting, you are unable to keep down liquids or solids, or any other symptoms that are concerning to you Remain well hydrated. Take oral antibiotics as prescribed Follow up with your primary care doctor Patient Language: French Prescriptions: New cefdinir 300 mg capsule 300 mg PO Q12H 5 Days Qty: 10 0RF No Action fosinopril 20 mg tablet 20 mg PO QAM cholecalciferol (vitamin D3) 50 mcg (2,000 unit) tablet 50 mcg PO DAILY hydrochlorothiazide 12.5 mg capsule 12.5 mg PO QAM metoprolol succinate 50 mg tablet extended release 24 hr 50 mg PO QAM aspirin 81 mg capsule 81 mg PO DAILY atorvastatin 40 mg tablet 40 mg PO QHS aspirin 325 mg Tablet,Delayed Release (Dr/Ec) 325 mg PO Q12HR 28 Days Qty: 56 0RF cyanocobalamin (vitamin B-12) 1,000 mcg tablet, sublingual 1,000 mcg sublingual DAILY Qty: 90 2RF celecoxib [Celebrex] 200 mg capsule 200 mg PO BID PRN (Reason: pain) Qty: 60 0RF oxycodone-acetaminophen [Percocet] 5-325 mg tablet 1 tablet PO Q8H PRN (Reason: pain) Qty: 30 0RF Follow-up/Referrals: Emily Tran MD [Primary Care Provider] -
--- OUTSIDE RECORDS SUMMARY | 2025-02-09 21:15 | XMS_ITS | Referral Summary ---
Author Organization [facility] [address] Address [address] [place] [address] Care Team Providers Care Bale Sewer Name Role Phone Génesis Tran MD Primary [...] Hx of CABG 08/18/2017 Coronary arteriosclerosis in [place] artery 06/18 Overview (11/13/2016): Coronary arteriosclerosis in [place] artery Social History Tobacco Use Types Packs/Day Years Used Date Smoking Tobacco: Former Cigarettes Q uit: 08/18/1978 Smokeless Tobacco: Never Tobacco Cessation:Counseling Given: Not Answered Alcohol Use Standard Drinks/Week Comments Yes 3 (1 standard drink = 0.6 oz pur e alcohol) Sex and Gender Information Value Date Recorded Sex Assigned at Not on file Legal Sex Male 3:49 PM CLERICAL ASSOCIATE Gender Identity Male 08/23/2021 9:11 AM CLERICAL ASSOCIATE Sexual Orientation Not on file Last Filed Vital Signs Vital Sign Reading Time Taken Comments Blood Pressure 130/82 09/21/2024 12:56 PM CLERICAL ASSOCIATE Pulse 82 09/21/2024 12:56 PM CLERICAL ASSOCIATE Temperature - - Respiratory Rate - - Oxygen Saturation 95% 09/21/2024 12:56 PM CLERICAL ASSOCIATE Inhaled Oxygen Concentration - - Weight 110.2 kg (243 lb) 09/21/2024 12:56 PM CLERICAL ASSOCIATE Height 172.7 cm (5' 8) 09/21/2024 12:56 PM CLERICAL ASSOCIATE Body Mass Index 36.95 09/21/2024 12:56 PM CLERICAL ASSOCIATE Plan of Treatment Not on file Insurance [facility] MEDIC[facility] Address: [address] [address] [place] [address] [facility] MEDICARE ADVANTAGE Care Teams Bale Sewer Relationship Specialty Start Date End Date Génesis Tran MD PCP - General Family Practice 08/18/17
--- OUTSIDE RECORDS SUMMARY | 2025-02-09 21:15 | XMS_ITS | Clinical Summary ---
Author Organization [facility] Address [facility] [place] [address] Care Team Providers Care Bark Spudder Name Role Phone Unavailable Primary Care Provider [...]
--- OUTSIDE RECORDS SUMMARY | 2025-02-09 21:15 | XMS_ITS | Clinical Summary ---
Author Organization [facility] [address] Address [address] [place] [address] Care Team Providers Care Md Allergy Immunology Name Role Phone Génesis Tran MD Primary [...] Hx of CABG 08/18/2017 Coronary arteriosclerosis in [place] artery 06/18 Overview (11/13/2016): Coronary arteriosclerosis in [place] artery Surgical History Surgery Date Site/Laterality Comments [...] on file Legal Sex Male 3:49 PM DIRECTOR OF CATEGORY MANAGEMENT Gender Identity Male 08/23/2021 9:11 AM DIRECTOR OF CATEGORY MANAGEMENT Sexual Orientation Not on file Obstetrics History Last Filed Vital Signs Vital Sign Reading Time Taken Comments Blood Pressure 130/82 09/21/2024 12:56 PM DIRECTOR OF CATEGORY MANAGEMENT Pulse 82 09/21/2024 12:56 PM DIRECTOR OF CATEGORY MANAGEMENT Temperature - - Respiratory Rate - - Oxygen Saturation 95% 09/21/2024 12:56 PM DIRECTOR OF CATEGORY MANAGEMENT Inhaled Oxygen Concentration - - Weight 110.2 kg (243 lb) 09/21/2024 12:56 PM DIRECTOR OF CATEGORY MANAGEMENT Height 172.7 cm (5' 8) 09/21/2024 12:56 PM DIRECTOR OF CATEGORY MANAGEMENT Body Mass Index 36.95 09/21/2024 12:56 PM DIRECTOR OF CATEGORY MANAGEMENT Plan of Treatment Health Maintenance Due Date [...] history exists Insurance MEDICARE ADVANTAGE [facility] MEDICARE ADVANTAGE Care Teams Md Allergy Immunology Relationship Specialty Start Date End Date Génesis Tran MD PCP - General Family Practice 08/18/17
--- OUTSIDE RECORDS SUMMARY | 2025-02-09 21:15 | XMS_ITS | Encounter Summary ---
Author Organization [facility] Address [address] [place] [address] Care Team Providers Care Sampling Theory Teacher Name Role Phone Géneiss Tran MD Primary Care Provider Encounter Details Date Type Department Care Team (Latest Contact Info) Description 07/20/2006 Outpatient Historical HIS CARD MACHINE SHORTHAND TEACHER Jeff Hameed MD [address] [facility] [address] [place] [address] Coronary Atherosclerosis of [place] Coronary Artery (Primary Dx) Social History Tobacco Use Types Packs/Day Years Used Date Smoking Tobacco: Never Assessed Sex and Gender Information Value Date Recorded Sex Assigned at Not on file Legal Sex Male 5:07 AM DIRECTOR OF INSTITUTIONAL SALES Gender Identity Not on file Sexual Orientation Not on file documented as of this encounter Plan of Treatment Upcoming Encounters Date Type Department Care Team (Late st Contact Info) Description 07/20/2025 8:45 AM DIRECTOR OF INSTITUTIONAL SALES Office Visit [facility] Oncology and Hematology - [place] [address] [facility] [address] [place] [address] Tad Hemphill MD [address] [facility] [address] [place] [address] documented as of this encounter Visit Diagnoses Diagnosis Coronary atherosclerosis of [place] coronary artery- Primary documented in this encounter Care Teams Sampling Theory Teacher Relationship Specialty Start Date End Date Génesis Tran MD [address] [place] [address] PCP - General Family Practice 6/8/23 documented as of this encounter
--- OUTSIDE RECORDS SUMMARY | 2025-02-09 21:15 | XMS_ITS | Clinical Summary ---
Author Organization [facility] Address [address], [address] [address] Phone Care Team Providers Care Facsimile Machine Operator Name Role Phone Génesis Tran [...] Relevant to Health Maintenance [facility] Care Teams Facsimile Machine Operator Relationship Specialty Start Date End Date Génesis Tran MD PCP - General Family Medicine 11/06/20
--- OUTSIDE RECORDS SUMMARY | 2025-02-09 21:15 | XMS_ITS | Clinical Summary ---
Author Organization [facility] Administrative Offices Address [address] [place] [address] Care Team Providers Care Planning Division Superintendent Name Role Phone Génesis Tran MD Primary [...] on file Legal Sex Male 5:07 AM MARKETING SERVICES COORDINATOR Gender Identity Not on file Sexual Orientation Not on file Last Filed Vital Signs Vital Sign Reading Time Taken Comments Blood Pressure 139/69 07/14/2024 8:38 AM MARKETING SERVICES COORDINATOR Pulse 70 07/14/2024 8:38 AM MARKETING SERVICES COORDINATOR Temperature 36.7 C (98 F) 07/14/2024 8:38 AM MARKETING SERVICES COORDINATOR Respiratory Rate 18 07/14/2024 8:38 AM MARKETING SERVICES COORDINATOR Oxygen Saturation 94% 07/14/2024 8:38 AM MARKETING SERVICES COORDINATOR Inhaled Oxygen Concentration - - Weight 108.9 kg (240 lb) 07/14/2024 8:38 AM MARKETING SERVICES COORDINATOR Height - - Body Mass Index - - Plan of Treatment Upcoming Encounters Date Type Department Care Team (Late st Contact Info) Description 07/20/2025 8:45 AM MARKETING SERVICES COORDINATOR Office Visit [facility] Oncology and Hematology - [place] [address] [facility] [address] [place] [address] Tad Hemphill MD [address] [facility] [address] [place] [address] Health Maintenance Due Date Last [...] Colorectal Cancer Screening 01/09/2031 Insurance Care Teams Planning Division Superintendent Relationship Specialty Start Date End Date Génesis Tran MD [address] [place] [address] PCP - General Family Practice 01/14/23
[2025-02-09 21:33] VITALS: BP 146/76; PULSE 77; RESP 16; O2SAT 97
[2025-02-09 21:47] LABS: Add Urine Microscopic? YES; Appearance Urine Turbid (Clear); Glucose Urine UA Negative (Negative); Leukocyte Esterase Ur 3+ LEU/UL (Negative); Need Manual Microscopic Reviewed; Nitrate Urine Negative (Negative); Specific Grav Ur 1.014 (1.001-1.035)
[2025-02-09] MEDS: CEFDINIR 300 MG CAPSULE PO (22:05)
== END 2025-02-09 22:10 | disposition home or self-care (01) ==
PROVIDERS: Emergency Provider Physician Assistant; PCP Family Medicine
DX: N39.0 Urinary tract infection, site not specified (principal); Z79.82 Long term (current) use of aspirin; K21.9 Gastro-esophageal reflux disease without esophagitis; E55.9 Vitamin D deficiency, unspecified; E53.8 Deficiency of other specified B group vitamins; I25.10 Atherosclerotic heart disease of native coronary artery without angina pectoris; I10 Essential (primary) hypertension; Z87.891 Personal history of nicotine dependence
CPT/HCPCS: 81001; 87086; 87181; 99283; A9270

== ENCOUNTER 2025-02-14 08:06 | Outpatient (RCR) | payer MEDICARE, SELFPAY ==
--- NOTE | 2025-02-14 09:51 | OPREHPOC ---
Outpatient Therapy Plan of Care This is a Multidisciplinary Plan of Care that may contain components documented by all disciplines (PT, OT, and ST.) PT Problem 1 PT Problem #1 Knowledge Deficit PT Goal 1 Goal / Goal Update Pt to be independent and compliant with HEP Target Visit 4 PT Problem 2 PT Problem #2 Impaired Functional Mobility PT Goal 1 Goal / Goal Update Pt to report 30% or less on LEFS to improve quality of life Pt to report being able to sleep 5 consecutive hours without waking up pt to be able to go up and down stairs with a recipricol gait pattern Target Visit 12 PT Problem 3 PT Problem #3 Impaired Range of Motion PT Goal 1 Goal / Goal Update Pt to have active L knee ROM of at least 0-125. Target Visit 12 PT Goal 1 Goal / Goal Update Pt to have 5/5 L knee strength pt to have 4+/5 L hip abduction strength Target Visit 12
--- NOTE | 2025-02-14 09:51 | PTOPEVAL1 ---
Assessment and note entered by JT File, PT Evaluation Information Assessment Status Evaluation Diagnosis L TKR Other ICD-10 Condition Codes ( Z96.652 PT) Onset 01/10/25 Subjective Information Pt reports that he had knee surgery 01/10/25. Pt reports that it has been difficult to sleep due to the pain. Pt reports he has had no issues with his incision. Pt reports that he had home health twice a week prior to coming to therapy. Pt reports that getting in the car is difficult. Pt reports that he wants to be able to cut his grass and take care of his yard again. Pt reports that he no longer is taking any pain medication. Pt reports that icing his knee has been helping. Pt reports he ices his knee 4 times a day. Pt reports that he has stairs into the garage and into the basement. Pt reports that he can go up and down the stairs using the hand rail/ moving slow. Reported Pain Level Pain Score 4: Self Report Assessment PT Clinical Summary Mr. Stratton is a 74 y/o male who presents to skilled PT s/p L TKR on 01/10/25. He has moderate deficits in L knee ROM and strength. Pt has goals to be able to do yard work and sleep better. Pt would benifit from skilled PT to achieve functional/objective goals and improve quality of life to return to PLOF. Plan of Care Interventions Electrical Stimulation,Gait Training,Hot Pack/Cold Pack,Intermittent Compression Pump,Manual Therapy ,Neuro Re-education,Patient/Caregiver Education, Therapeutic Activities,Therapeutic Exercise PT Services Indicated Yes Treatment Frequency and 2x a week for 12 visits Duration These treatments will address the objective and functional deficits as defined above. The patient will be advanced safely and appropriately in order for the patient to progress towards his/her prior level of function. Additional exercises will be introduced and as well as a comprehensive home exercise program upon discharge, if needed, ?to ensure carryover of functional gains achieved in the clinic. This treatment plan has been reviewed and agreement upon by the patient.
--- NOTE | 2025-03-15 08:39 | OPREHPOC ---
Outpatient Therapy Plan of Care This is a Multidisciplinary Plan of Care that may contain components documented by all disciplines (PT, OT, and ST.) PT Problem 1 PT Problem #1 Knowledge Deficit PT Goal 1 Goal / Goal Update Pt to be independent and compliant with HEP Target Visit 4 Progress Met PT Problem 2 PT Problem #2 Impaired Functional Mobility PT Goal 1 Goal / Goal Update Pt to report 30% or less on LEFS to improve quality of life -progress Pt to report being able to sleep 5 consecutive hours without waking up -met pt to be able to go up and down stairs with a reciprocal gait pattern -met for garage steps Target Visit 12 Progress Partially Met PT Problem 3 PT Problem #3 Impaired Range of Motion PT Goal 1 Goal / Goal Update Pt to have active L knee ROM of at least 0-125. - met following stretches, unable to reach at rest Target Visit 12 Progress Partially Met PT Goal 1 Goal / Goal Update Pt to have 5/5 L knee strength pt to have 4+/5 L hip abduction strength Target Visit 12 Progress Met
--- NOTE | 2025-03-15 08:39 | PTOPPROG ---
Assessment and note entered by Gay Wilkinson, PT Evaluation Information Assessment Status Progress Diagnosis L TKR Other ICD-10 Condition Codes ( Z96.652 PT) Onset 01/10/25 Subjective Information Pt reports feeling improvement in his knee since surgery. He still has some mild pain behind his kneecap and moderate swelling but notes reduced pain and improved ability to sleep. He no longer wakes up at night due to pain and has continued icing his knee to address swelling. He has returned to cutting grass but does note some pain and difficulty with this task. He's able to ascend /descend his garage steps reciprocally without difficulty but has to side step his basement steps , which he uses almost daily. Assessment PT Clinical Summary Mr. Stratton presents for his 10th skilled PT visit following L TKA on 01/10/25. He notes overall reduction in pain that allows him to sleep throughout the night without waking and return to mowing the lawn with only mild difficulty. He demonstrates improved hip and knee strength as well as improvements in L knee AROM but continues to demonstrate knee stiffness that requires skilled PT intervention to reach adequate flexion and extension AROM. He will benefit from continued skilled PT to make further progress toward goals addressing knee AROM and stair climbing. Plan of Care Interventions Electrical Stimulation,Gait Training,Hot Pack/Cold Pack,Intermittent Compression Pump,Manual Therapy ,Neuro Re-education,Patient/Caregiver Education, Therapeutic Activities,Therapeutic Exercise PT Services Indicated Yes Treatment Frequency and Continue POC Duration These treatments will address the objective and functional deficits as defined above. The patient will be advanced safely and appropriately in order for the patient to progress towards his/her prior level of function. Additional exercises will be introduced and as well as a comprehensive home exercise program upon discharge, if needed, ?to ensure carryover of functional gains achieved in the clinic. This treatment plan has been reviewed and agreement upon by the patient.
--- NOTE | 2025-03-21 08:40 | OPREHPOC ---
Outpatient Therapy Plan of Care This is a Multidisciplinary Plan of Care that may contain components documented by all disciplines (PT, OT, and ST.) PT Problem 1 PT Problem #1 Knowledge Deficit PT Goal 1 Goal / Goal Update Pt to be independent and compliant with HEP Target Visit 4 Progress Met PT Problem 2 PT Problem #2 Impaired Functional Mobility PT Goal 1 Goal / Goal Update Pt to report 30% or less on LEFS to improve quality of life -not met Pt to report being able to sleep 5 consecutive hours without waking up -met pt to be able to go up and down stairs with a reciprocal gait pattern -met for garage steps Target Visit 12 Progress Partially Met PT Problem 3 PT Problem #3 Impaired Range of Motion PT Goal 1 Goal / Goal Update Pt to have active L knee ROM of at least 0-125. - met following stretches, unable to reach at rest Target Visit 12 Progress Met PT Goal 1 Goal / Goal Update Pt to have 5/5 L knee strength pt to have 4+/5 L hip abduction strength Target Visit 12 Progress Met
--- NOTE | 2025-03-21 08:40 | PTOPDC ---
Assessment and note entered by Gay Wilkinson, PT Evaluation Information Assessment Status Discharge Diagnosis L TKR Other ICD-10 Condition Codes ( Z96.652 PT) Onset 01/10/25 Subjective Information Travis reports feeling ready to finish with physical therapy this date. He has continued to keep up with his exercises and pain relief methods as needed and has returned to near normal physical and functional activities without excessive pain. He still notes occasional pain and swelling but overall he can perform all tasks without to much difficulty. He reports he went to the [facility] fair the other day and did a lot of walking, reports that his knee swelled up a lot but it's not so bad now. He mainly notes stiffness/discomfort rather than pain. Reported Pain Level Pain Score 0: Self Report Assessment PT Clinical Summary Mr. Stratton has attended 12 skilled PT visits following L TKA on 01/10/25. He demonstrates sufficient knee AROM and strength, and he has returned to all daily functional activities without extreme difficulty. He has met or partially met all therapeutic goals set for him and is appropriate for discharge from skilled PT this date. Plan of Care PT Services Indicated No
== END 2025-03-21 09:34 | disposition home or self-care (01) ==
LOC: CHSPT 08:06
PROVIDERS: Visit Provider Orthopaedic Surgery
DX: Z96.652 Presence of left artificial knee joint (principal)
CPT/HCPCS: 97110; 97112; 97161; 97530

== ENCOUNTER 2025-03-08 09:29 | Outpatient (CLI) | payer MEDICARE, SELFPAY ==
--- OUTSIDE RECORDS SUMMARY | 2025-03-08 09:47 | XMS_ITS | Clinical Summary ---
Author Organization [facility] Address [address], [address] [address] Phone Care Team Providers Care Wire Fence Builder Name Role Phone Génesis Tran MD Primary [...] (HCV) Screening 1950 TdaP Immunization 1950 Cologuard 1995 Immunochemical Fecal Occult Blood 1995 Pneumococcal Immunization (5 0+ years) (1 of 1 - PCV) 2000 Zoster Immunization (1 of 2) 2000 SARS-COV-2 Immunization ( - 2023-25 season) 2024 Influenza Immunization (#1) 2025 Respiratory Syncytial Virus (RSV) Immunization (Adult) (1 - 1-dose 75+ series) 2025 Colonoscopy 01/09/2031 01/09/2021 Colorectal Cancer Screening 01/09/2031 Hepatitis B Immunization Aged Out No longer eligible based on patient's age to complete this topic Human Papillomavirus (HPV) Immunization Aged Out No longer eligible b ased on patient's age to complete this topic Meningococcal Immunization (ACWY) Aged Out No longer eligible based on patient's age to complete this topic Rotavirus Immunization Aged Out No lo nger eligible based on patient's age to complete this topic Procedures Procedure Name Priority Date/Time Associated Diagnosis Comments COLONOSCOPY Routine 01/09/2021 from Last 3 Months or Most Recently Relevant to Health Maintenance Results * COLONOSCOPY (01/09/2021) Horacio Aguayo DO PROCEDURE/MINOR SURGICAL ORDERA BLES Final Result from Last 3 Months or Most Recently Relevant to Health Maintenance Insurance MEDICARE C [facility] Care Teams Wire Fence Builder Relationship Specialty Start Date End Date Génesis Tran MD PCP - General Family Medicine 11/06/20
--- OUTSIDE RECORDS SUMMARY | 2025-03-08 09:47 | XMS_ITS | Clinical Summary ---
Author Organization [facility] [address] Address [address] [place] [address] Care Team Providers Care Hand Mixer Name Role Phone Génesis Tran MD Primary [...] Hx of CABG 08/18/2017 Coronary arteriosclerosis in [place] artery 06/18 Overview (11/13/2016): Coronary arteriosclerosis in [place] artery Surgical History Surgery Date Site/Laterality Comments [...] on file Legal Sex Male 3:49 PM CHILDREN'S LUNCHROOM SUPERVISOR Gender Identity Male 08/23/2021 9:11 AM CHILDREN'S LUNCHROOM SUPERVISOR Sexual Orientation Not on file Obstetrics History Last Filed Vital Signs Vital Sign Reading Time Taken Comments Blood Pressure 130/82 09/21/2024 12:56 PM CHILDREN'S LUNCHROOM SUPERVISOR Pulse 82 09/21/2024 12:56 PM CHILDREN'S LUNCHROOM SUPERVISOR Temperature - - Respiratory Rate - - Oxygen Saturation 95% 09/21/2024 12:56 PM CHILDREN'S LUNCHROOM SUPERVISOR Inhaled Oxygen Concentration - - Weight 110.2 kg (243 lb) 09/21/2024 12:56 PM CHILDREN'S LUNCHROOM SUPERVISOR Height 172.7 cm (5' 8) 09/21/2024 12:56 PM CHILDREN'S LUNCHROOM SUPERVISOR Body Mass Index 36.95 09/21/2024 12:56 PM CHILDREN'S LUNCHROOM SUPERVISOR Plan of Treatment Health Maintenance Due Date [...] - PPSV23) 05/30/2018 05/30/2017 Influenza Vaccine (#1) 2025 9, 05/04/2018, 08/09/2017, Additional history exists Insurance [facility]IC[facility] Address: [address] [address] [facility] MEDICARE [facility] Address: [place] [id number] Care Teams Hand Mixer Relationship Specialty Start Date End Date Génesis Tran MD PCP - General Family Practice 08/18/17
--- OUTSIDE RECORDS SUMMARY | 2025-03-08 09:47 | XMS_ITS | Clinical Summary ---
Author Organization [facility] Administrative Offices Address [address] [place] [address] Care Team Providers Care Head Well Puller Name Role Phone Génesis Tran MD Primary [...] on file Legal Sex Male 5:07 AM CUSTOMER ASSISTANCE ASSOCIATE Gender Identity Not on file Sexual Orientation Not on file Last Filed Vital Signs Vital Sign Reading Time Taken Comments Blood Pressure 139/69 07/14/2024 8:38 AM CUSTOMER ASSISTANCE ASSOCIATE Pulse 70 07/14/2024 8:38 AM CUSTOMER ASSISTANCE ASSOCIATE Temperature 36.7 C (98 F) 07/14/2024 8:38 AM CUSTOMER ASSISTANCE ASSOCIATE Respiratory Rate 18 07/14/2024 8:38 AM CUSTOMER ASSISTANCE ASSOCIATE Oxygen Saturation 94% 07/14/2024 8:38 AM CUSTOMER ASSISTANCE ASSOCIATE Inhaled Oxygen Concentration - - Weight 108.9 kg (240 lb) 07/14/2024 8:38 AM CUSTOMER ASSISTANCE ASSOCIATE Height - - Body Mass Index - - Plan of Treatment Upcoming Encounters Date Type Department Care Team (Late st Contact Info) Description 07/20/2025 8:45 AM CUSTOMER ASSISTANCE ASSOCIATE Office Visit [facility] Oncology and Hematology - [place] [address] [facility] [address] [place] [address] Tad Hemphill MD [address] [facility] [address] [place] [address] Health Maintenance Due Date Last Done Comments DTAP/TDAP/TD VACCINES (1 - Tdap) 1969 FIT-DNA Q 3 years 1995 FIT/FOBT Q 1 year 1995 Flex Sig/CT Colonography Q 5 years 1995 PNEUMOCOCCAL VACCINE 50+ YEARS (1 of 1 - PCV) 08/17/19 ZOSTER VACCINE (1 of 2) 2000 Abdominal Aortic Aneurysm (AAA) Screening 2015 INFLUENZA VACCINE (#1) 2025 RSV VACCINE (60+ or ) (1 - 1-dose 75+ series) 2025 COLORECTAL SCREENING 01/09/2031 01/09/2021 Colorectal Cancer Screening 01/09/2031 Insurance Care Teams Head Well Puller Relationship Specialty Start Date End Date Génesis Tran MD [address] [place] [address] PCP - General Family Practice 01/14/23
--- OUTSIDE RECORDS SUMMARY | 2025-03-08 09:47 | XMS_ITS | Clinical Summary ---
Author Organization [facility] Address [facility] [place] [address] Care Team Providers Care Wool Fleece Sorter Name Role Phone Unavailable Primary Care Provider [...]
--- OUTSIDE RECORDS SUMMARY | 2025-03-08 09:47 | XMS_ITS | Referral Summary ---
Author Organization [facility] [address] Address [address] [place] [address] Care Team Providers Care Veterinary Surgeon Name Role Phone Génesis Tran MD Primary [...] Hx of CABG 08/18/2017 Coronary arteriosclerosis in [place] artery 06/18 Overview (11/13/2016): Coronary arteriosclerosis in [place] artery Social History Tobacco Use Types Packs/Day Years Used Date Smoking Tobacco: Former Cigarettes Q uit: 08/18/1978 Smokeless Tobacco: Never Tobacco Cessation:Counseling Given: Not Answered Alcohol Use Standard Drinks/Week Comments Yes 3 (1 standard drink = 0.6 oz pur e alcohol) Sex and Gender Information Value Date Recorded Sex Assigned at Not on file Legal Sex Male 3:49 PM INDUSTRIAL CAFETERIA MANAGER Gender Identity Male 08/23/2021 9:11 AM INDUSTRIAL CAFETERIA MANAGER Sexual Orientation Not on file Last Filed Vital Signs Vital Sign Reading Time Taken Comments Blood Pressure 130/82 09/21/2024 12:56 PM INDUSTRIAL CAFETERIA MANAGER Pulse 82 09/21/2024 12:56 PM INDUSTRIAL CAFETERIA MANAGER Temperature - - Respiratory Rate - - Oxygen Saturation 95% 09/21/2024 12:56 PM INDUSTRIAL CAFETERIA MANAGER Inhaled Oxygen Concentration - - Weight 110.2 kg (243 lb) 09/21/2024 12:56 PM INDUSTRIAL CAFETERIA MANAGER Height 172.7 cm (5' 8) 09/21/2024 12:56 PM INDUSTRIAL CAFETERIA MANAGER Body Mass Index 36.95 09/21/2024 12:56 PM INDUSTRIAL CAFETERIA MANAGER Plan of Treatment Not on file Insurance [facility] Address: [address] [address] [place] [address] [facility] MEDIC[facility] ADVANTAGE Care Teams Veterinary Surgeon Relationship Specialty Start Date End Date Génesis Tran MD PCP - General Family Practice 08/18/17
--- OUTSIDE RECORDS SUMMARY | 2025-03-08 09:47 | XMS_ITS | Encounter Summary ---
Author Organization [facility] Address [address] [place] [address] Care Team Providers Care Fishing Tool Supervisor Name Role Phone Génesis Tran MD Primary Care Provider Encounter Details Date Type Department Care Team (Latest Contact Info) Description 07/20/2006 Outpatient Historical HIS CARD BAG MENDER Jeff Hameed MD [address] [facility] [address] [place] [address] Coronary Atherosclerosis of [place] Coronary Artery (Primary Dx) Social History Tobacco Use Types Packs/Day Years Used Date Smoking Tobacco: Never Assessed Sex and Gender Information Value Date Recorded Sex Assigned at Not on file Legal Sex Male 5:07 AM ZIGZAG ELASTIC ATTACHER Gender Identity Not on file Sexual Orientation Not on file documented as of this encounter Plan of Treatment Upcoming Encounters Date Type Department Care Team (Late st Contact Info) Description 07/20/2025 8:45 AM ZIGZAG ELASTIC ATTACHER Office Visit [facility] Oncology and Hematology - [place] [address] [facility] [address] [place] [address] Tad Hemphill MD [address] [facility] [address] [place] [address] documented as of this encounter Visit Diagnoses Diagnosis Coronary atherosclerosis of [place] coronary artery- Primary documented in this encounter Care Teams Fishing Tool Supervisor Relationship Specialty Start Date End Date Génesis Tran MD [address] [place] [address] PCP - General Family Practice 6/8/23 documented as of this encounter
== END 2025-03-08 09:30 | disposition home or self-care (01) ==
LOC: ANHGOSHLAB 09:30
PROVIDERS: PCP Family Medicine; Visit Provider Family Medicine
DX: N39.0 Urinary tract infection, site not specified (principal)
CPT/HCPCS: 87086

== ENCOUNTER 2025-04-26 13:13 | Outpatient (CLI) | payer MEDICARE, SELFPAY ==
--- OUTSIDE RECORDS SUMMARY | 2025-04-26 13:21 | XMS_ITS | Clinical Summary ---
Author Organization [facility] Address [address], [address] [address] Phone Care Team Providers Care Chain Dyer Name Role Phone Génesis Tran MD Primary [...] Relevant to Health Maintenance Insurance MEDICARE C [facility] Care Teams Chain Dyer Relationship Specialty Start Date End Date Génesis Tran MD PCP - General Family Medicine 11/06/20
--- OUTSIDE RECORDS SUMMARY | 2025-04-26 13:21 | XMS_ITS | Encounter Summary ---
Author Organization [facility] Healthcare Address [address] [place] [address] Care Team Providers Care Undercar Specialist Name Role Phone Génesis Tran MD Primary Care Provider Encounter Details Date Type Department Care Team (Late st Contact Info) Description 07/05/2023 Orders Only [facility] Health Information Management [address] [place] [id number] Scanning, Provider Social History Tobacco Use Types Packs/Day Years Used Date Smoking Tobacco: Former Cigarettes Q uit: 08/18/1978 Smokeless Tobacco: Never Alcohol Use Standard Drinks/Week Comments Yes 3 (1 standard drink = 0.6 oz pur e alcohol) Sex and Gender Information Value Date Recorded Sex Assigned at Not on file Legal Sex Male 3:49 PM SKI PATROL DIRECTOR Gender Identity Male 08/23/2021 9:11 AM SKI PATROL DIRECTOR Sexual Orientation Not on file documented as of this encounter Plan of Treatment Not on file documented as of this encounter Procedures Procedure Name Priority Date/Time Associated Diagnosis Comments SCAN - LABS 07/05/2023 documented in this encounter Results * SCAN - LABS (07/05/2023) us Provider Scanning Final Result documented in this encounter Visit Diagnoses Not on filedocumented in this encounter Care Teams Undercar Specialist Relationship Specialty Start Date End Date Génesis Tran MD PCP - General Family Practice 08/18/17 documented as of this encounter
--- OUTSIDE RECORDS SUMMARY | 2025-04-26 13:21 | XMS_ITS | Encounter Summary ---
Author Organization [facility] Address [address] [place] [address] Care Team Providers Care Motor Vehicle Clerk Name Role Phone Génesis Trna MD Primary Care Provider Encounter Details Date Type Department Care Team (Late st Contact Info) Description 04/24/2025 External Device Data ST[place] ABSTRACTION Provider, Abstract NO ADDRESS ON FILE Social History Tobacco Use Types Packs/Day Years Used Date Smoking Tobacco: Former Cigarettes Smokeless Tobacco: Never Alcohol Use Standard Drinks/Week Comments Yes 0 (1 standard drink = 0.6 oz pur e alcohol) rare Sex and Gender Information Value Date Recorded Sex Assigned at Not on file Legal Sex Male 5:07 AM ONLINE CONTENT COORDINATOR Gender Identity Not on file Sexual Orientation Not on file documented as of this encounter Plan of Treatment Upcoming Encounters Date Type Department Care Team (Late st Contact Info) Description 07/20/2025 8:45 AM ONLINE CONTENT COORDINATOR Office Visit [facility] Oncology and Hematology - [place] [address] [facility] [address] [place] [address] Tad Hemphill MD [address] [facility] [address] [place] [address] documented as of this encounter Visit Diagnoses Not on filedocumented in this encounter Care Teams Motor Vehicle Clerk Relationship Specialty Start Date End Date Génesis Tran MD [address] [place] [address] PCP - General Family Practice 01/14/23 documented as of this encounter
--- OUTSIDE RECORDS SUMMARY | 2025-04-26 13:22 | XMS_ITS | Encounter Summary ---
Author Organization [facility] Address [address] [place] [address] Care Team Providers Care Electrical Controls Designer Name Role Phone Génesis Tran MD Primary Care Provider Encounter Details Date Type Department Care Team (Latest Contact Info) Description 07/20/2006 Outpatient Historical HIS CARD A P MANAGER Jeff Hameed MD [address] [facility] [address] [place] [address] Coronary Atherosclerosis of [place] Coronary Artery (Primary Dx) Social History Tobacco Use Types Packs/Day Years Used Date Smoking Tobacco: Never Assessed Sex and Gender Information Value Date Recorded Sex Assigned at Not on file Legal Sex Male 5:07 AM HONEY PRODUCER Gender Identity Not on file Sexual Orientation Not on file documented as of this encounter Plan of Treatment Upcoming Encounters Date Type Department Care Team (Late st Contact Info) Description 07/20/2025 8:45 AM HONEY PRODUCER Office Visit [facility] Oncology and Hematology - [place] [address] [facility] [address] [place] [address] Tad Hemphill MD [address] [facility] [address] [place] [address] documented as of this encounter Visit Diagnoses Diagnosis Coronary atherosclerosis of [place] coronary artery- Primary documented in this encounter Care Teams Electrical Controls Designer Relationship Specialty Start Date End Date Génesis Tran MD [address] [place] [address] PCP - General Family Practice 6/8/23 documented as of this encounter
--- OUTSIDE RECORDS SUMMARY | 2025-04-26 13:22 | XMS_ITS | Clinical Summary ---
Author Organization [facility] [address] Address [address] [place] [address] Care Team Providers Care Diamond Driller Name Role Phone Génesis Tran MD Primary [...] Hx of CABG 08/18/2017 Coronary arteriosclerosis in [place] artery 06/18 Overview (11/13/2016): Coronary arteriosclerosis in [place] artery Surgical History Surgery Date Site/Laterality Comments [...] on file Legal Sex Male 3:49 PM SUBJECT SCIENTIFIC RESEARCH Gender Identity Male 08/23/2021 9:11 AM SUBJECT SCIENTIFIC RESEARCH Sexual Orientation Not on file Obstetrics History Last Filed Vital Signs Vital Sign Reading Time Taken Comments Blood Pressure 130/82 09/21/2024 12:56 PM SUBJECT SCIENTIFIC RESEARCH Pulse 82 09/21/2024 12:56 PM SUBJECT SCIENTIFIC RESEARCH Temperature - - Respiratory Rate - - Oxygen Saturation 95% 09/21/2024 12:56 PM SUBJECT SCIENTIFIC RESEARCH Inhaled Oxygen Concentration - - Weight 110.2 kg (243 lb) 09/21/2024 12:56 PM SUBJECT SCIENTIFIC RESEARCH Height 172.7 cm (5' 8) 09/21/2024 12:56 PM SUBJECT SCIENTIFIC RESEARCH Body Mass Index 36.95 09/21/2024 12:56 PM SUBJECT SCIENTIFIC RESEARCH Plan of Treatment Health Maintenance Due Date Last Done Comments Colon Cancer Screening-Colonoscopy 1950 Depression Screening 1950 Fall Risk Assessment 1950 Hepatitis C Screening 1950 DTaP/Tdap/Td Vaccine (1 - Tdap) 1961 Hepatitis B Screening 1968 Zoster Vaccine (1 of 2) 2000 Abdominal Aortic Aneurysm (A AA) Screen 2015 Well Visit 65+ 2015 Pneumococcal vaccine 65+ (2 of 2 - PCV20 or PCV21) 05/30/2018 05/30/2017 Influenza Vaccine (#1) 2025 9, 05/04/2018, 08/09/2017, Additional history exists Insurance MEDICARE ADVANTAGE [facility] MEDICARE Address: [address] [address] [facility] MEDICARE ADVANTAGE [facility] MEDICARE Address: [address] [address] Care Teams Diamond Driller Relationship Specialty Start Date End Date Génesis Tran MD PCP - General Family Practice 08/18/17
--- OUTSIDE RECORDS SUMMARY | 2025-04-26 13:22 | XMS_ITS | Clinical Summary ---
Author Organization [facility] Administrative Offices Address [address] [place] [address] Care Team Providers Care Director Heart Name Role Phone Génesis Tran MD Primary [...] Encounters Date Type Department Care Team Description 04/24/2025 External Device Data STL ABSTRACTION Provider, Abstract 03/27/2025 External Device Data STL ABSTRACTION Provider, Abstract 03/13/2025 External Device Data STL ABSTRACTION Provider, Abstract [...] on file Legal Sex Male 5:07 AM FISH RECEIVER Gender Identity Not on file Sexual Orientation Not on file Last Filed Vital Signs Vital Sign Reading Time Taken Comments Blood Pressure 139/69 07/14/2024 8:38 AM FISH RECEIVER Pulse 70 07/14/2024 8:38 AM FISH RECEIVER Temperature 36.7 C (98 F) 07/14/2024 8:38 AM FISH RECEIVER Respiratory Rate 18 07/14/2024 8:38 AM FISH RECEIVER Oxygen Saturation 94% 07/14/2024 8:38 AM FISH RECEIVER Inhaled Oxygen Concentration - - Weight 108.9 kg (240 lb) 07/14/2024 8:38 AM FISH RECEIVER Height - - Body Mass Index - - Plan of Treatment Upcoming Encounters Date Type Department Care Team (Late st Contact Info) Description 07/20/2025 8:45 AM FISH RECEIVER Office Visit [facility] Oncology and Hematology [facility] [address] [facility] [address] [place] [address] Tad Hemphill MD [address] [facility] [address] [place] [address] Health Maintenance Due Date Last [...] Colorectal Cancer Screening 01/09/2031 Insurance Care Teams Director Heart Relationship Specialty Start Date End Date Génesis Tran MD [address] [place] [address] PCP - General Family Practice 01/14/23
[2025-04-26 19:00] LABS: Alanine Aminotransferase 24 U/L (6-50); Albumin Level 4.0 g/dL (3.5-5.1); Alkaline Phosphatase 98 U/L (38-126); Anion Gap 3 mmol/L (4-12); Aspartate Amino Transferase 46 U/L (17-59); Bilirubin,Total 1.0 mg/dL (0.2-1.3); Blood Urea Nitrogen 15 mg/dL (9-20); Calcium 8.9 mg/dL (8.4-10.2); Carbon Dioxide 35 mmol/L (22-30); Chloride 100 mmol/L (98-107); Estimated Glomerular Filt Rate > 60; Glucose 93 mg/dL (65-110); Potassium 4.2 mmol/L (3.4-5.0); Sodium 138 mmol/L (137-145); Total Protein 7.6 g/dL (6.3-8.2)
[2025-04-26 19:16] LABS: Hemoglobin A1C 6.2 % (<5.7)
== END 2025-04-26 13:14 | disposition home or self-care (01) ==
LOC: ANHGOSHLAB 13:14
PROVIDERS: PCP Family Medicine; Visit Provider Family Medicine
DX: R73.03 Prediabetes (principal); I10 Essential (primary) hypertension
CPT/HCPCS: 36415; 80053; 83036